=== PATIENT | female | born 1955 | race African-American/Black ===

== ENCOUNTER 2017-03-09 20:26 | Emergency (ER) | payer MEDICARE, BC ==
[~2017-03-09] VITALS: Ht 160 cm; Wt 92.1 kg
[~2017-03-09 20:26] MED LIST: ALBU2.5V5 IH; CETI10TA22 PO; CIPR500T6 PO; DIAZEPAM10 MG PO; ESTR5VIA IM; FAMO20TA5 PO; FLUT16SP2 NS; FURO-68 PO; HYDR-971 PO; HYDR1TAB26 PO; LANS30CA66 PO; LEXAPRO10 MG PO; METF500T4 PO; METH10TA2 PO; PRED10TA16 PO; PRED50TA PO; PRO AIR; ROSI4TAB3 PO; TRAM50TA PO; TRIA15OI TP
[2017-03-09 20:40] VITALS: BP 165/80
[2017-03-09 20:54] LABS: BASO % 1 % (0-3); EOS % 1 % (0-3); HEMATOCRIT 39.7 % (36.0-47.0); LYMPH # 2.1 x10^3/uL (1.0-4.8); LYMPH % 53 % (24-48); MEAN CORPUSCULAR HEMOGLOBIN 29 pg (25-35); MEAN CORPUSCULAR HGB CONC 33 g/dL (31-37); MEAN CORPUSCULAR VOLUME 89 fL (79-100); MONO % 10 % (0-9); NEUT % 36 % (31-73); PLATELET COUNT 212 x10^3/uL (140-400); RED BLOOD COUNT 4.47 x10^6/uL (3.50-5.40); RED CELL DISTRIBUTION WIDTH 14.2 % (11.5-14.5); WHITE BLOOD COUNT 3.9 x10^3/uL (4.0-11.0)
[2017-03-09 21:02] LABS: CALCIUM 8.6 mg/dL (8.5-10.1); CREATININE 0.8 mg/dL (0.6-1.0); GFR 87.7; POTASSIUM 3.4 mmol/L (3.5-5.1)
[2017-03-09 21:08] LABS: ALBUMIN 3.7 g/dL (3.4-5.0); TOTAL BILIRUBIN 0.4 mg/dL (0.2-1.0); TOTAL PROTEIN 7.3 g/dL (6.4-8.2)
[2017-03-09] MEDS: fentaNYL PF VIAL 100 MCG/2 ML VIAL IV PRN ×2 (21:23→22:00)
[2017-03-09 21:27] LABS: BILIRUBIN,URINE NEGATIVE (NEG); GLUCOSE,URINE NEGATIVE (NEG); NITRITE,URINE NEGATIVE (NEG); PROTEIN,URINE NEGATIVE (NEG-TRACE); UROBILINOGEN,URINE 0.2 mg/dL (0.2 mg/dL)
[2017-03-09 21:37] LABS: BACTERIA,URINE 0 /HPF (0-FEW); RBC,URINE TNTC /HPF (0-2); SQUAMOUS EPITHELIAL CELL,UR MOD /LPF; WBC,URINE 0 /HPF (0-4)
[2017-03-09] MEDS ORDERED: ONDANSETRON PF 4 MG/2 ML VIAL. IV ONE (21:45)
--- NOTE | 2017-03-09 21:48 | RAD ---
EXAM: CT ABDOMEN/PELVIS WITHOUT CONTRAST. HISTORY: Left lower quadrant pain and flank pain. TECHNIQUE: Computed tomography of the abdomen and pelvis was performed without intravenous contrast. COMPARISON: None. FINDINGS: Lung windows through the visualized portions of the bases reveal a calcified granuloma in the left lower lobe. Bone windows reveal no suspicious lesions. Instrumented anterior and posterior fusion changes are noted from L4 through S1 with laminectomies. There is a prominent hemangioma within the right pedicle and body of L3. The appendix is not inflamed. There is no obstruction. The uterus is surgically absent. A calculus at the left ureteropelvic junction measures 5 x 3 mm. There is only mild pelviectasis. Additional left renal calculi measure 3 mm or less. One on the right measures 3 mm. The liver, gallbladder, spleen, pancreas and adrenal glands are unremarkable without contrast. IMPRESSION: 1. 5 mm left ureteropelvic junction calculus. 2. Additional bilateral renal calculi measure 3 mm or less. *One or more of the following individualized dose reduction techniques were utilized for this examination: 1. Automated exposure control. 2. Adjustment of the mA and/or kV according to patient size. 3. Use of iterative reconstruction technique. Electronically signed by: No Perez MD (03/09/2017 9:45 PM) [facility]
[2017-03-09] MEDS ORDERED: HYDR-2758 PO (21:55)
[2017-03-09] MEDS ORDERED: ONDA4TAB10 SL (21:55)
--- NOTE | 2017-03-09 21:55 | PHYS DOC ---
Past Medical History Past Medical History: Asthma, Bronchitis, Depression, Diabetes-Type II, GERD, Kidney Stone Additional Past Medical Histor: cystitis, bulging disc, DJD, CHRONIC BACK PAIN, SLEEP APNEA Past Surgical History: Hysterectomy, Knee Replacement, Tonsillectomy, Tubal ligation, Other Additional Past Surgical Histo: LAP, back X 2 Alcohol Use: Occasionally Drug Use: None Adult General Chief Complaint Chief Complaint: flank pain HPI HPI 61-year-old female presenting to the emergency department with left flank pain. The pain is moderate to severe, associated with hematuria. it is radiating from the flank into the groin. She has history of kidney stones. She denies vomiting fevers or chills. Review of systems is negative for chest pain shortness of breath fevers chills confusion weakness or numbness. All other review of systems is negative unless otherwise noted in history of present illness. ED course: 61-year-old female presenting with left flank pain found to have nephrolithiasis 5 mm stone at the UPJ. IV fluids pain medication were administered along with nausea medication. Otherwise exam was unremarkable. Patient was subsequent discharged home to follow-up with urology in about 7 days. The patient was then discharged home in stable condition to follow up with their primary care physician over the next 2-3 days. They were to return if their symptoms worsened or if they were concerned for any reason. Face-to- face discharge instructions and return precautions were given. Patient's questions were answered to their satisfaction. Patient is comfortable plan. Review of Systems Review of Systems SEE ABOVE. Current Medications Current Medications Current Medications Medications (Trade) Dose Ordered Sig/Karina Start Time Stop Time Status Last Admin Dose Admin Fentanyl Citrate (Fentanyl 2ml Vial) 25 mcg 1X PRN PRN 03/09/17 21:15 03/10/17 21:14 03/09/17 21:23 25 MCG Ondansetron HCl (Zofran) 4 mg 1X ONCE 03/09/17 21:45 03/09/17 21:46 DC 03/09/17 21:23 4 MG Allergies Allergies Allergies Coded Allergies Type Severity Reaction Last Updated Verified Iodinated Contrast- Oral and IV Dye Allergy Intermediate Hives 06/06/14 Yes aspirin Allergy Intermediate Hives 06/06/14 Yes caffeine Allergy Intermediate Hives 06/06/14 Yes ibuprofen Allergy Intermediate Hives 08/29/13 Yes morphine Allergy Intermediate Hives 04/07/15 Yes oxycodone HCl Allergy Intermediate Hives 04/07/15 Yes propoxyphene napsylate Allergy Intermediate Hives 08/29/13 Yes codeine Adverse Reaction Intermediate N&V STOMACH PAINS 04/07/15 Yes Physical Exam Physical Exam SEE ABOVE Constitutional: Well developed, well nourished, no acute distress, non-toxic appearance. [] HENT: Normocephalic, atraumatic, bilateral external ears normal, oropharynx moist, no oral exudates, nose normal. [] Eyes: PERRLA, EOMI, conjunctiva normal, no discharge. [] Neck: Normal range of motion, no tenderness, supple, no stridor. [] Cardiovascular:Heart rate regular rhythm, no murmur [] Lungs & Thorax: Bilateral breath sounds clear to auscultation [] Abdomen: Bowel sounds normal, soft, no tenderness, no masses, no pulsatile masses. [] Skin: Warm, dry, no erythema, no rash. [] Back: No tenderness, mild left CVA tenderness Extremities: No tenderness, no cyanosis, no clubbing, ROM intact, no edema. [] Neurologic: Alert and oriented X 3, normal motor function, normal sensory function, no focal deficits noted. [] Psychologic: Affect normal, judgement normal, mood normal. [] Current Patient Data Vital Signs Vital Signs Date Time Temp Pulse Resp B/P (MAP) Pulse Ox O2 Delivery O2 Flow Rate FiO2 03/09/17 21:23 20 03/09/17 20:40 98.1 80 165/80 (108) 100 Room Air 98.1 Lab Values Laboratory Tests Test 03/09/17 20:44 White Blood Count 3.9 x10^3/uL (4.0-11.0) L Red Blood Count 4.47 x10^6/uL (3.50-5.40) Hemoglobin 13.0 g/dL (12.0-15.5) Hematocrit 39.7 % (36.0-47.0) Mean Corpuscular Volume 89 fL (79-100) Mean Corpuscular Hemoglobin 29 pg (25-35) Mean Corpuscular Hemoglobin Concent 33 g/dL (31-37) Red Cell Distribution Width 14.2 % (11.5-14.5) Platelet Count 212 x10^3/uL (140-400) Neutrophils (%) (Auto) 36 % (31-73) Lymphocytes (%) (Auto) 53 % (24-48) H Monocytes (%) (Auto) 10 % (0-9) H Eosinophils (%) (Auto) 1 % (0-3) Basophils (%) (Auto) 1 % (0-3) Neutrophils # (Auto) 1.4 x10^3uL (1.8-7.7) L Lymphocytes # (Auto) 2.1 x10^3/uL (1.0-4.8) Monocytes # (Auto) 0.4 x10^3/uL (0.0-1.1) Eosinophils # (Auto) 0.0 x10^3/uL (0.0-0.7) Basophils # (Auto) 0.0 x10^3/uL (0.0-0.2) Urine Collection Type Unknown Urine Color Yellow Urine Clarity Clear Urine pH 6.0 Urine Specific [place] 1.020 Urine Protein Negative mg/dL (NEG-TRACE) Urine Glucose (UA) Negative mg/dL (NEG) Urine Ketones (Stick) Negative mg/dL (NEG) Urine Blood Large (NEG) Urine Nitrite Negative (NEG) Urine Bilirubin Negative (NEG) Urine Urobilinogen Dipstick 0.2 mg/dL (0.2 mg/dL) Urine Leukocyte Esterase Trace (NEG) Urine RBC Tntc /HPF (0-2) Urine WBC 0 /HPF (0-4) Urine Squamous Epithelial Cells Mod /LPF Urine Bacteria 0 /HPF (0-FEW) Urine Hyaline Casts Few /HPF Urine Mucus Marked /LPF Sodium Level 143 mmol/L (136-145) Potassium Level 3.4 mmol/L (3.5-5.1) L Chloride Level 106 mmol/L (98-107) Carbon Dioxide Level 31 mmol/L (21-32) Anion Gap 6 (6-14) Blood Urea Nitrogen 16 mg/dL (7-20) Creatinine 0.8 mg/dL (0.6-1.0) Estimated GFR (Cockcroft-Gault) 87.7 BUN/Creatinine Ratio 20 (6-20) Glucose Level 87 mg/dL (70-99) Calcium Level 8.6 mg/dL (8.5-10.1) Total Bilirubin 0.4 mg/dL (0.2-1.0) Aspartate Amino Transferase (AST) 15 U/L (15-37) Alanine Aminotransferase (ALT) 17 U/L (14-59) Alkaline Phosphatase 56 U/L (46-116) Total Protein 7.3 g/dL (6.4-8.2) Albumin 3.7 g/dL (3.4-5.0) Albumin/Globulin Ratio 1.0 (1.0-1.7) Lipase 69 U/L (73-393) L Laboratory Tests 03/09/17 20:44 Laboratory Tests 03/09/17 20:44 EKG EKG [] Radiology/Procedures Radiology/Procedures [] Course & Med Decision Making Course & Med Decision Making Pertinent Labs and Imaging studies reviewed. (See chart for details) [] Dragon Disclaimer Dragon Disclaimer This electronic medical record was generated, in whole or in part, using a voice recognition dictation system. Departure Departure Impression: Primary Impression: Nephrolithiasis Disposition: 01 HOME, SELF-CARE Condition: STABLE Referrals: ALEXIA DEL CASTILLO MD (PCP) CHRISSY HARGROVE MD Patient Instructions: Kidney Stones Additional Instructions: Thank you for allowing us to participate in your care today. Followup with your primary care physician in 3 days if your symptoms do not improve. Follow-up with a urologist within 7 days. Call your Primary Doctor tomorrow and inform them of your visit today. If you do not have a primary care provider you can ask for a list of our primary care providers. Return to the emergency department you have any new or concerning findings. This should be evaluated by the primary care physician and any necessary consulting services for continued management within a few days after discharge. Return to emergency room if you have any new or concerning symptoms including but not limited to fever, chills, nausea, vomiting, intractable pain, any new rashes, chest pain, shortness of air, uncontrolled bleeding, difficulty breathing, and/or vision loss. You may have been prescribed medication that can change in your level of thinking and ability to operate machinery. These medications include hydrocodone and Ativan. Also, Benadryl has been known to do this as well. Be sure to check with your pharmacist and ask if the medications you've prescribed can affect your level of consciousness. I recommend not operating heavy machinery or driving while on medication such as these. Scripts Ondansetron (ZOFRAN ODT) 4 Mg Tab.rapdis 1 TAB SL PRN Q8HRS Y for NAUSEA, #6 TAB Prov: MELI VÁZQUEZ MD 03/09/17 Hydrocodone Bit/Acetaminophen (HYDROCODONE-APAP 5-325 ) 1 Each Tablet 1 TAB PO PRN Q6HRS Y for PAIN, #15 TAB 0 Refills Be careful as this medication may cause you to be drowsy or tired. Do not drive on this medication. Prov: MELI VÁZQUEZ MD 03/09/17 MELI VÁZQUEZ MD Mar 09, 2017 21:55
== END 2017-03-09 22:22 | disposition home or self-care (01) ==
LOC: ER 20:26
DX: N20.0 Calculus of kidney (principal); E11.9 Type 2 diabetes mellitus without complications; J45.909 Unspecified asthma, uncomplicated; K21.9 Gastro-esophageal reflux disease without esophagitis; G89.29 Other chronic pain; Z90.710 Acquired absence of both cervix and uterus; Z91.041 Radiographic dye allergy status; Z88.6 Allergy status to analgesic agent; Z88.5 Allergy status to narcotic agent; Z88.8 Allergy status to other drugs, medicaments and biological substances
CPT/HCPCS: 36415; 74176; 80053; 81001; 83690; 85027; 87086; 96374; 96375; 96376; 99285; J2405; J3010

== ENCOUNTER 2017-06-22 16:54 | Emergency (ER) | payer MEDICARE, BC ==
[~2017-06-22] VITALS: Ht 160 cm; Wt 92.5 kg
[~2017-06-22 16:54] MED LIST changes: +HYDR-2758 PO; +ONDA4TAB10 SL
[2017-06-22 17:13] VITALS: BP 168/86
--- NOTE | 2017-06-22 17:37 | PHYS DOC ---
Past Medical History Past Medical History: Asthma, Bronchitis, Depression, Diabetes-Type II, GERD, Kidney Stone Additional Past Medical Histor: cystitis, bulging disc, DJD, CHRONIC BACK PAIN, SLEEP APNEA Past Surgical History: Hysterectomy, Knee Replacement, Tonsillectomy, Tubal ligation, Other Additional Past Surgical Histo: LAP, back X 2 Alcohol Use: Occasionally Drug Use: None Adult General Chief Complaint Chief Complaint: UPPER EXTREMITY PAIN [facility] HPI Patient is a 61 year old female presents to the emergency department stating she's been having a right elbow pain and discomfort from approximately 1 month now. Patient states that she is seen by her primary care physician in which she was provided with hydrocodone for pain and discomfort. She describes the pain as being sharp and stabbing in nature and increased with movement. She states that the pain originates at the elbow and radiates down into the hand and up into the shoulder area. Patient denies any trauma or injuries. She cannot recall what she was doing prior to the incident occurring. Patient states that her primary care physician and has asked for her to follow up with her neurologist as they believe that this may be neuropathy. Patient states that she does have neuropathy in her feet and this is nothing near the same type of pain. Patient does state that she is right-hand dominant. She denies having any x-rays or any further examinations of the elbow. Patient then states she feels as though the elbow catches at time with movement. Review of Systems Review of Systems Constitutional: Denies fever or chills [] Eyes: Denies change in visual acuity, redness, or eye pain [] HENT: Denies nasal congestion or sore throat [] Respiratory: Denies cough or shortness of breath [] Cardiovascular: No additional information not addressed in HPI [] GI: Denies abdominal pain, nausea, vomiting, bloody stools or diarrhea [] : Denies dysuria or hematuria [] Musculoskeletal: Denies back pain. Right elbow pain and discomfort Integument: Denies rash or skin lesions [] Neurologic: Denies headache, focal weakness or sensory changes [] Endocrine: Denies polyuria or polydipsia [] All other systems were reviewed and found to be within normal limits, except as documented in this note. Allergies Allergies Allergies Coded Allergies Type Severity Reaction Last Updated Verified Iodinated Contrast- Oral and IV Dye Allergy Intermediate Hives 06/06/14 Yes aspirin Allergy Intermediate Hives 06/06/14 Yes caffeine Allergy Intermediate Hives 06/06/14 Yes ibuprofen Allergy Intermediate Hives 08/29/13 Yes morphine Allergy Intermediate Hives 04/07/15 Yes oxycodone HCl Allergy Intermediate Hives 04/07/15 Yes propoxyphene napsylate Allergy Intermediate Hives 08/29/13 Yes codeine Adverse Reaction Intermediate N&V STOMACH PAINS 04/07/15 Yes Physical Exam Physical Exam Constitutional: Well developed, well nourished, no acute distress, non-toxic appearance. [] HENT: Normocephalic, atraumatic, bilateral external ears normal, oropharynx moist, no oral exudates, nose normal. [] Eyes: PERRLA, EOMI, conjunctiva normal, no discharge. [] Neck: Normal range of motion, no tenderness, supple, no stridor. [] Cardiovascular:Heart rate regular rhythm, no murmur [] Lungs & Thorax: Bilateral breath sounds clear to auscultation [] Skin: Warm, dry, no erythema, no rash. [] Back: No tenderness Extremities: Right elbow tenderness, no bruising, no swelling or discoloration noted at the elbow area. No cyanosis, no clubbing, ROM intact, no edema. Equal dean of instruction noted bilaterally, peripheral pulses 2+ cap refill brisk < 2 seconds. Neurologic: Alert and oriented X 3, normal motor function, normal sensory function, no focal deficits noted. [] Psychologic: Affect normal, judgement normal, mood normal. [] Current Patient Data Vital Signs Vital Signs Date Time Temp Pulse Resp B/P (MAP) Pulse Ox O2 Delivery O2 Flow Rate FiO2 06/22/17 17:13 97.7 72 18 100 Room Air 97.7 EKG EKG [] Radiology/Procedures Radiology/Procedures [] Course & Med Decision Making Course & Med Decision Making Pertinent Labs and Imaging studies reviewed. (See chart for details) Patient requested pain medication here in the emergency department. X-rays were still pending at this time. X-rays are negative for any bony abnormalities per Dr. Moreno. When into provided patient with x-ray results. Patient was offered Tylenol here in the emergency department. Patient states she has arty self medicated her with her home medications. Patient will be discharged home with recommendations to follow-up with orthopedic. She'll be provided with Dr. Owens name and number to follow-up with. Recommended elevation as much as possible. Recommend she continue to use the elbow to prevent it from freezing. Signs and symptoms return back to emergency department provided. All questions and concerns answered at patient's bedside. She'll be discharged home in stable condition. All questions and concerns answered at the patient's bedside. [] Dragon Disclaimer Dragon Disclaimer This electronic medical record was generated, in whole or in part, using a voice recognition dictation system. Departure Departure Impression: Primary Impression: Right elbow pain Disposition: HOME, SELF-CARE Condition: STABLE Referrals: ALEXIA DEL CASTILLO MD (PCP) Patient Instructions: Elbow Injury-Brief Additional Instructions: Activity as tolerated. Take your pain medications as prescribed. Ice packs on 20 minutes off treatment several times a day. Elevation as much as possible. Follow-up with orthopedic within the next week. Follow-up your primary care physician for further pain management. Return back to emergency department for signs and symptoms become worse. KAVITA JC APRN Jun 22, 2017 17:37
--- NOTE | 2017-06-23 07:56 | RAD ---
EXAM: Right elbow, 3 views. HISTORY: Pain. COMPARISON: None. FINDINGS: Frontal, lateral and oblique views of the right elbow were obtained. There is no fracture, dislocation or subluxation. There is degenerative spurring along the anterior trochlea. Evaluation for effusion is limited due to overlying soft tissue and coating artifact. There is suggestion of prominent anterior fat pad. IMPRESSION: 1. Mild osteoarthritis involving the right elbow. 2. Suboptimal evaluation for elbow effusion. There is suggestion of an anterior fat pad is indicating an effusion. Correlate with physical exam findings.
== END 2017-06-22 18:16 | disposition home or self-care (01) ==
LOC: ER 16:54
DX: M25.521 Pain in right elbow (principal); J45.909 Unspecified asthma, uncomplicated; F32.9 Major depressive disorder, single episode, unspecified; E11.9 Type 2 diabetes mellitus without complications; K21.9 Gastro-esophageal reflux disease without esophagitis; G89.29 Other chronic pain; G47.30 Sleep apnea, unspecified; Z87.442 Personal history of urinary calculi; Z96.659 Presence of unspecified artificial knee joint; Z90.710 Acquired absence of both cervix and uterus; Z91.041 Radiographic dye allergy status; Z88.6 Allergy status to analgesic agent; Z88.8 Allergy status to other drugs, medicaments and biological substances; Z88.5 Allergy status to narcotic agent
CPT/HCPCS: 73080; 99284

== ENCOUNTER 2017-10-18 06:32 | Observation (INO) | payer BC, MEDICARE ==
[2017-10-18] MEDS ORDERED: MORPHINE SULFATE 2 MG/ML DISP.SYRIN. IV (07:00)
[2017-10-18] MEDS ORDERED: ONDANSETRON PF 4 MG/2 ML VIAL. IV (07:00)
[2017-10-18] MEDS ORDERED: LIDOCAINE 1% PF 2 ML VIAL. ID (07:00)
[2017-10-18] MEDS: IV RINGERS,LACTATED 1000ML 1,000 ML IV (07:17)
[2017-10-18 07:46] LABS: ADD MAN DIFF? NO
[2017-10-18 07:51] LABS: BASO % 1 % (0-3); EOS % 1 % (0-3); HEMOGLOBIN 13.3 g/dL (12.0-15.5); LYMPH # 1.7 x10^3/uL (1.0-4.8); LYMPH % 50 % (24-48); MEAN CORPUSCULAR HEMOGLOBIN 28 pg (25-35); MEAN CORPUSCULAR HGB CONC 33 g/dL (31-37); MEAN CORPUSCULAR VOLUME 88 fL (79-100); MONO # 0.3 x10^3/uL (0.0-1.1); MONO % 10 % (0-9); NEUT # 1.3 x10^3uL (1.8-7.7); NEUT % 39 % (31-73); PLATELET COUNT 201 x10^3/uL (140-400); RED BLOOD COUNT 4.68 x10^6/uL (3.50-5.40); RED CELL DISTRIBUTION WIDTH 14.1 % (11.5-14.5); WHITE BLOOD COUNT 3.4 x10^3/uL (4.0-11.0)
[2017-10-18] MEDS ORDERED: SURGICEL HEMOSTAT 4X8 EACH. (07:57)
[2017-10-18] MEDS ORDERED: fentaNYL PF VIAL 100 MCG/2 ML VIAL ×3 (08:05→12:31)
[2017-10-18] MEDS ORDERED: MIDAZOLAM HCL/PF 2 MG/2 ML VIAL. (08:19)
[2017-10-18] MEDS ORDERED: GLYCOPYRROLATE 1 MG/5 ML VIAL. (08:49)
[2017-10-18] MEDS ORDERED: NEOSTIGMINE 10 MG/10 ML VIAL. (08:54)
[2017-10-18] MEDS ORDERED: DEXAMETHASONE SOD PHOS 20 MG/5 ML VIAL. (09:07)
[2017-10-18] MEDS ORDERED: ONDANSETRON PF 4 MG/2 ML VIAL. (09:07)
[2017-10-18] MEDS ORDERED: PROPOFOL 20 ML IV (09:07)
[2017-10-18] MEDS: BUPIVAC MPF-EPI 0.5%-1:200000 30 ML VIAL. INJ (09:26)
[2017-10-18] MEDS ORDERED: SEVOFLURANE > 120 MINUTES. IH (10:39)
[2017-10-18] MEDS ORDERED: DEXTROSE 50% 25 GM / 50ML DISP.SYRIN. IV (10:45)
[2017-10-18] MEDS ORDERED: diphenhydrAMINE HCL 25 MG CAPSULE PO (10:45)
[2017-10-18] MEDS ORDERED: PROCHLORPERAZINE 10 MG/2 ML VIAL. IV (10:45)
[2017-10-18] MEDS ORDERED: 0.9 % SODIUM CHLORIDE 10 ML DISP.SYRIN. IV (10:45)
[2017-10-18] MEDS ORDERED: KETAMINE HCL 500 MG/10 ML VIAL. (11:00)
[2017-10-18 11:15] LABS: POC GLUCOSE 106 mg/dL (70-99)
[2017-10-18] MEDS ORDERED: ceFAZolin 2GM PREMIX 2 GM/50 ML BAG IV (12:00)
[2017-10-18] MEDS: fentaNYL PF VIAL 100 MCG/2 ML VIAL IV ×4 (12:34→19:59)
[2017-10-18] MEDS ORDERED: PROCHLORPERAZINE 10 MG/2 ML VIAL. (13:26)
[2017-10-18] MEDS: PROCHLORPERAZINE 10 MG/2 ML VIAL. IV (13:28)
[2017-10-18] MEDS: GABAPENTIN 300 MG CAPSULE. PO ×2 (14:00→22:00)
[2017-10-18] MEDS: PHENOL ORAL SPRAY 177ML BOTTLE. PO (18:39)
[2017-10-18] MEDS: ACETAMINOPHEN 650 MG/20.3 ML SOLUTION. PO (22:59)
[2017-10-19] MEDS: GABAPENTIN 300 MG CAPSULE. PO ×3 (06:00→15:17)
[2017-10-19 06:35] LABS: ADD MAN DIFF? NO
[2017-10-19 06:58] LABS: BASO % 0 % (0-3); EOS % 0 % (0-3); LYMPH # 1.9 x10^3/uL (1.0-4.8); LYMPH % 20 % (24-48); MEAN CORPUSCULAR HEMOGLOBIN 29 pg (25-35); MEAN CORPUSCULAR HGB CONC 33 g/dL (31-37); MEAN CORPUSCULAR VOLUME 88 fL (79-100); MONO # 0.8 x10^3/uL (0.0-1.1); MONO % 8 % (0-9); NEUT # 6.8 x10^3uL (1.8-7.7); NEUT % 72 % (31-73); PLATELET COUNT 189 x10^3/uL (140-400); RED BLOOD COUNT 4.21 x10^6/uL (3.50-5.40); RED CELL DISTRIBUTION WIDTH 14.4 % (11.5-14.5); WHITE BLOOD COUNT 9.5 x10^3/uL (4.0-11.0)
[2017-10-19] MEDS: SIMETHICONE 80 MG TAB.CHEW PO ×2 (07:37→16:23)
[2017-10-19] MEDS: metFORMIN 500 MG TABLET PO (07:37)
[2017-10-19] MEDS: HYDROcodone/APAP 5/325MG 1 TAB TABLET PO ×4 (07:38→22:29)
[2017-10-19 08:29] LABS: POC GLUCOSE 94 mg/dL (70-99)
[2017-10-19] MEDS: IV RINGERS,LACTATED 1000ML 1,000 ML IV ×3 (08:45→23:28)
[2017-10-19] MEDS: ONDANSETRON PF 4 MG/2 ML VIAL. IV (08:48)
[2017-10-19 11:38] LABS: POC GLUCOSE 102 mg/dL (70-99)
[2017-10-19] MEDS: ACETAMINOPHEN 650 MG/20.3 ML SOLUTION. PO (13:27)
[2017-10-19] MEDS: CALCIUM CARBONATE 500 MG TAB.CHEW PO (16:23)
[2017-10-19] MEDS: fentaNYL PF VIAL 100 MCG/2 ML VIAL IV (17:21)
[2017-10-19 17:46] LABS: ADD MAN DIFF? NO
[2017-10-19 17:52] LABS: BASO % 1 % (0-3); EOS % 1 % (0-3); HEMATOCRIT 35.2 % (36.0-47.0); HEMOGLOBIN 11.7 g/dL (12.0-15.5); LYMPH # 1.7 x10^3/uL (1.0-4.8); LYMPH % 23 % (24-48); MEAN CORPUSCULAR HEMOGLOBIN 29 pg (25-35); MEAN CORPUSCULAR HGB CONC 33 g/dL (31-37); MEAN CORPUSCULAR VOLUME 88 fL (79-100); MONO # 0.4 x10^3/uL (0.0-1.1); MONO % 6 % (0-9); NEUT % 69 % (31-73); PLATELET COUNT 177 x10^3/uL (140-400); RED BLOOD COUNT 4.01 x10^6/uL (3.50-5.40); RED CELL DISTRIBUTION WIDTH 14.1 % (11.5-14.5); WHITE BLOOD COUNT 7.1 x10^3/uL (4.0-11.0)
[2017-10-19] MEDS: diphenhydrAMINE 50 MG/ML VIAL IV (18:48)
[2017-10-19] MEDS ORDERED: DICYCLOMINE HCL 10 MG CAPSULE PO (19:30)
[2017-10-19] MEDS: DOCUSATE SODIUM 100 MG CAPSULE. PO (20:29)
[2017-10-19] MEDS: KETOROLAC 30 MG/ML INJ. IV (20:30)
[2017-10-19] MEDS: DICYCLOMINE HCL 10 MG CAPSULE PO (20:36)
[2017-10-19 21:09] LABS: POC GLUCOSE 72 mg/dL (70-99)
[2017-10-19] MEDS: ZOLPIDEM 5 MG TABLET. PO (22:45)
[2017-10-20] MEDS: HYDROcodone/APAP 5/325MG 1 TAB TABLET PO ×5 (02:19→19:53)
[2017-10-20] MEDS: KETOROLAC 30 MG/ML INJ. IV ×3 (02:23→17:53)
[2017-10-20] MEDS: SIMETHICONE 80 MG TAB.CHEW PO ×2 (06:18→10:20)
[2017-10-20] MEDS: DICYCLOMINE HCL 10 MG CAPSULE PO ×2 (06:18→13:06)
[2017-10-20 08:08] LABS: POC GLUCOSE 87 mg/dL (70-99)
[2017-10-20] MEDS: DOCUSATE SODIUM 100 MG CAPSULE. PO ×2 (09:20→19:53)
[2017-10-20] MEDS: BISACODYL 10 MG SUPP.RECT. PR (10:25)
[2017-10-20 13:13] LABS: POC GLUCOSE 111 mg/dL (70-99)
[2017-10-20] MEDS: GABAPENTIN 300 MG CAPSULE. PO ×2 (14:00→20:37)
[2017-10-20] MEDS: ZOLPIDEM 5 MG TABLET. PO (21:48)
[2017-10-21] MEDS: HYDROcodone/APAP 5/325MG 1 TAB TABLET PO ×4 (01:46→14:57)
[2017-10-21] MEDS ORDERED: AMMONIA AROMATIC 15% INHALANT AMPUL. ×2 (04:46→05:00)
[2017-10-21] MEDS: GABAPENTIN 300 MG CAPSULE. PO ×2 (07:09→14:57)
[2017-10-21] MEDS: DOCUSATE SODIUM 100 MG CAPSULE. PO (07:09)
[2017-10-21] MEDS: metFORMIN 500 MG TABLET PO (07:09)
[2017-10-21] MEDS: DICYCLOMINE HCL 10 MG CAPSULE PO (08:46)
== END 2017-10-21 17:05 | disposition home or self-care (01) ==
LOC: SURG 06:32 → 3 NORTH 10:43
DX: K66.0 Peritoneal adhesions (postprocedural) (postinfection) (principal); R10.2 Pelvic and perineal pain; N73.6 Female pelvic peritoneal adhesions (postinfective); G89.29 Other chronic pain
CPT/HCPCS: 36415; 82962; 85025; 86850; 86900; 86901; 96374; 96375; 96376; A4215; C1782; G0378; G0379; J0690; J0780; J1100; J1200; J1885; J2250; J2405; J2704; J2710; J3010; J3490; J7030; J7120

== ENCOUNTER → 2018-10-18 | Outpatient (CLI) | payer MEDICARE, BC ==
[2017-10-21 14:10] VITALS: BP 132/78
[~2018-10-18] MED LIST changes: +CEPH500C PO; +DICY10AM PO; +DOCU-109 PO; +ESTR1TAB15 PO; +GABA-689 PO; -HYDR-2758 PO; +HYDR-2761 PO; +HYDR-3164 PO; -HYDR-971 PO; +METF500T16 PO; -METF500T4 PO; +OMEP40CA5 PO; +ZOLP10TA PO
--- NOTE | 2018-10-18 15:06 | RAD ---
Three-phase bone scan, 10/18/2018: HISTORY: Left knee pain, fall, previous left knee replacement in 2008 Imaging of both knees was performed following IV injection of 26 mCi of technetium 99m MDP. No previous bone scan is available at this time for comparison purposes. The dynamic flow study demonstrates symmetric perfusion at the knees. The blood pool phase demonstrates a photon deficient area at the left knee due to the patient's known knee prosthesis. The delayed images demonstrate moderately increased activity along the margins of both the tibial and femoral components of the left knee prosthesis, most prominent laterally. There is also increased activity at the left patella. There is only minimally increased activity at the right knee compatible with patient's known arthritis. IMPRESSION: Moderately periprosthetic and patellar activity at the left knee raising the possibility of prosthesis loosening or infection. Electronically signed by: Meliton Maher MD (10/18/2018 3:03 PM) [facility]
== END | disposition home or self-care (01) ==
LOC: NM 08:12
PROVIDERS: ATTEND Orthopaedic Surgery
DX: Z47.1 Aftercare following joint replacement surgery (principal); Z96.652 Presence of left artificial knee joint
CPT/HCPCS: 78315; 96374; A9503

== ENCOUNTER 2019-01-19 09:46 | Emergency (ER) | payer MEDICARE, BC ==
[~2019-01-19] VITALS: Ht 160 cm; Wt 100.7 kg
[~2019-01-19 09:46] MED LIST changes: -CEPH500C PO
[2019-01-19] MEDS ORDERED: IV NORMAL SALINE 1000ML BAG 1,000 ML IV ONE (10:15)
[2019-01-19] MEDS ORDERED: ONDANSETRON PF 4 MG/2 ML VIAL. IV ONE (10:15)
[2019-01-19 10:36] LABS: BILIRUBIN,URINE NEGATIVE (NEG); CLARITY,URINE CLEAR; COLOR,URINE YELLOW; NITRITE,URINE POSITIVE (NEG); PH,URINE 7.5; PROTEIN,URINE 30 mg/dL (NEG-TRACE)
[2019-01-19] MEDS ORDERED: fentaNYL PF VIAL 100 MCG/2 ML VIAL IV ONE (10:45)
[2019-01-19 10:46] LABS: BASO % 1 % (0-3); EOS # 0.1 x10^3/uL (0.0-0.7); EOS % 2 % (0-3); HEMATOCRIT 35.8 % (36.0-47.0); HEMOGLOBIN 11.9 g/dL (12.0-15.5); LYMPH # 1.3 x10^3/uL (1.0-4.8); LYMPH % 38 % (24-48); MEAN CORPUSCULAR HEMOGLOBIN 29 pg (25-35); MEAN CORPUSCULAR HGB CONC 33 g/dL (31-37); MEAN CORPUSCULAR VOLUME 87 fL (79-100); MONO # 0.4 x10^3/uL (0.0-1.1); MONO % 11 % (0-9); NEUT # 1.6 x10^3uL (1.8-7.7); NEUT % 48 % (31-73); PLATELET COUNT 343 x10^3/uL (140-400); RED BLOOD COUNT 4.14 x10^6/uL (3.50-5.40); RED CELL DISTRIBUTION WIDTH 13.5 % (11.5-14.5); WHITE BLOOD COUNT 3.3 x10^3/uL (4.0-11.0)
[2019-01-19 11:14] LABS: SQUAMOUS EPITHELIAL CELL,UR MANY /LPF
[2019-01-19 11:15] LABS: BACTERIA,URINE MODERATE /HPF (0-FEW); RBC,URINE 0 /HPF (0-2)
[2019-01-19 11:17] LABS: CALCIUM 9.5 mg/dL (8.5-10.1); CREATININE 0.6 mg/dL (0.6-1.0); GFR 121.4; POTASSIUM 3.8 mmol/L (3.5-5.1)
[2019-01-19 11:31] LABS: ALBUMIN 3.6 g/dL (3.4-5.0); ALBUMIN/GLOBULIN RATIO 0.9 (1.0-1.7); TOTAL BILIRUBIN 0.3 mg/dL (0.2-1.0); TOTAL PROTEIN 7.4 g/dL (6.4-8.2)
--- NOTE | 2019-01-19 11:47 | RAD ---
CT abdomen and pelvis without contrast TECHNIQUE: Helical multiplanar reconstructed noncontrast CT imaging of the abdomen and pelvis was acquired. PQRS statement: CT scans at this facility use dose reduction including either automated exposure control, iterative reconstructions, and /or weight based radiation dosing via mA and kV modification when appropriate to reduce radiation dose to as low as reasonably achievable. HISTORY: Left lower quadrant abdominal pain, diverticulitis. COMPARISON: CT abdomen and pelvis June 04, 2014. Abdomen findings: Postoperative changes of L4 and L5 laminectomies and L4-5 and L5-S1 discectomies and fusion with interbody cages and pedicle screws and rods. There is a stable lytic lesion of the right L3 vertebral body and pedicle back to 2013 favoring a benign lesion. Small calcified granuloma left lower lobe. Fatty atrophy of the pancreas. Liver, spleen and adrenals are unremarkable. Nephrolithiasis. No ureteral calculi or hydronephrosis. Ovarian vein phleboliths separate from the ureters are noted. There may be faint dependent layering gallstones or dense gallbladder sludge. Sigmoid diverticulosis.Appendix not visualized could be surgically absent or vascular by surrounding bowel loops. No obstruction or inflammation of the GI tract. Aortic calcified plaque. No abdominal fluid. Pelvis findings: There is a mild bladder wall edema anteriorly. Hysterectomy. Ovaries absent. Numerous pelvic phleboliths. Rectum and bones are unremarkable. IMPRESSION: 1. Mild groundglass density surrounding the bladder may be edema from cystitis. 2. Nephrolithiasis. No obstructing urinary calculi or hydronephrosis evident. 3. Mild sigmoid diverticulosis without inflammatory change. Electronically signed by: David Gaspar MD (01/19/2019 11:44 AM) [facility]
[2019-01-19] MEDS ORDERED: CEPH500C PO (12:21)
[2019-01-19] MEDS ORDERED: cefTRIAXone IV Push 1 GM VIAL. IVP ONE (12:30)
[2019-01-19 12:32] VITALS: BP 157/80
--- NOTE | 2019-01-19 13:01 | PHYS DOC ---
Past Medical History Past Medical History: Asthma, Bronchitis, Depression, Diabetes-Type II, GERD, Kidney Stone, Other Additional Past Medical Histor: cystitis,bulging disc,DJD,CHRONIC BACK PAIN,SLEEP APNEA Past Surgical History: Hysterectomy, Knee Replacement, Tonsillectomy, Tubal ligation, Other Additional Past Surgical Histo: LAP,back X 2 Alcohol Use: Occasionally Drug Use: None Adult General Chief Complaint Chief Complaint: ABDOMINAL PAIN HPI HPI Patient is a 63 year old female presenting with abdominal pain lower abdomen has some pain with urination some dull and sharp pain also is having constipation frequent small bowel movements she is 3 weeks status post a knee replacement she is taking pain medication she is taking stool softener no fever that she knows of positive nausea she felt lightheaded this morning did not pass out no chest pain symptoms are moderate worsening with time Review of Systems Review of Systems Review of systems is otherwise negative except as noted in the history of present illness negative for chest pain negative for diarrhea negative for melena Current Medications Current Medications Current Medications Medications (Trade) Dose Ordered Sig/Karina Start Time Stop Time Status Last Admin Dose Admin Ceftriaxone Sodium (Rocephin) 1 gm 1X ONCE 01/19/19 12:30 01/19/19 12:31 DC 01/19/19 12:31 1 GM Fentanyl Citrate (Fentanyl 2ml Vial) 50 mcg 1X ONCE 01/19/19 10:45 01/19/19 10:46 DC 01/19/19 10:56 50 MCG Ondansetron HCl (Zofran) 4 mg 1X ONCE 01/19/19 10:15 01/19/19 10:16 DC 01/19/19 10:48 4 MG Sodium Chloride 1,000 ml @ 1,000 mls/hr 1X ONCE 01/19/19 10:15 01/19/19 11:14 DC 01/19/19 10:48 1,000 MLS/HR Allergies Allergies Allergies Coded Allergies Type Severity Reaction Last Updated Verified Iodinated Contrast- Oral and IV Dye Allergy Intermediate Hives 10/16/17 Yes aspirin Allergy Intermediate Hives 10/16/17 Yes caffeine Allergy Intermediate Hives 10/16/17 Yes morphine Allergy Intermediate NAUSEA 10/16/17 Yes oxycodone HCl Allergy Intermediate NAUSEA 10/16/17 Yes propoxyphene napsylate Allergy Intermediate NAUSEA 10/16/17 Yes ibuprofen Allergy Mild NAUSEA 10/16/17 Yes codeine Adverse Reaction Intermediate N&V STOMACH PAINS 10/16/17 Yes Physical Exam Physical Exam Constitutional: Well developed, well nourished, no acute distress, non-toxic appearance. [] HENT: Normocephalic, atraumatic, bilateral external ears normal, oropharynx moist, no oral exudates, nose normal. [] Eyes: PERRLA, EOMI, conjunctiva normal, no discharge. [] Neck: Normal range of motion, no tenderness, supple, no stridor. [] Cardiovascular:Heart rate regular rhythm, no murmur [] Lungs & Thorax: Bilateral breath sounds clear to auscultation [] Abdomen: Bowel sounds normal, soft, mild suprapubic and llq tenderness, no masses, no pulsatile masses. [] Skin: Warm, dry, no erythema, no rash. [] Back: No tenderness, no CVA tenderness. [] Extremities: Appropriate healing of a left total knee Neurologic: Alert and oriented X 3, normal motor function, normal sensory function, no focal deficits noted. [] Psychologic: Affect normal, judgement normal, mood normal. [] Current Patient Data Vital Signs Vital Signs Date Time Temp Pulse Resp B/P (MAP) Pulse Ox O2 Delivery O2 Flow Rate FiO2 01/19/19 12:32 80 17 157/80 (105) 96 Room Air 01/19/19 09:48 98.0 98.0 Lab Values Laboratory Tests Test 01/19/19 10:25 01/19/19 10:35 Urine Collection Type Unknown Urine Color Yellow Urine Clarity Clear Urine pH 7.5 Urine Specific [place] 1.020 Urine Protein 30 mg/dL (NEG-TRACE) Urine Glucose (UA) Negative mg/dL (NEG) Urine Ketones (Stick) Trace mg/dL (NEG) Urine Blood Negative (NEG) Urine Nitrite Positive (NEG) Urine Bilirubin Negative (NEG) Urine Urobilinogen Dipstick 1.0 mg/dL (0.2 mg/dL) Urine Leukocyte Esterase Small (NEG) Urine RBC 0 /HPF (0-2) Urine WBC 5-10 /HPF (0-4) Urine Squamous Epithelial Cells Many /LPF Urine Bacteria Moderate /HPF (0-FEW) Urine Mucus Mod /LPF White Blood Count 3.3 x10^3/uL (4.0-11.0) L Red Blood Count 4.14 x10^6/uL (3.50-5.40) Hemoglobin 11.9 g/dL (12.0-15.5) L Hematocrit 35.8 % (36.0-47.0) L Mean Corpuscular Volume 87 fL (79-100) Mean Corpuscular Hemoglobin 29 pg (25-35) Mean Corpuscular Hemoglobin Concent 33 g/dL (31-37) Red Cell Distribution Width 13.5 % (11.5-14.5) Platelet Count 343 x10^3/uL (140-400) Neutrophils (%) (Auto) 48 % (31-73) Lymphocytes (%) (Auto) 38 % (24-48) Monocytes (%) (Auto) 11 % (0-9) H Eosinophils (%) (Auto) 2 % (0-3) Basophils (%) (Auto) 1 % (0-3) Neutrophils # (Auto) 1.6 x10^3uL (1.8-7.7) L Lymphocytes # (Auto) 1.3 x10^3/uL (1.0-4.8) Monocytes # (Auto) 0.4 x10^3/uL (0.0-1.1) Eosinophils # (Auto) 0.1 x10^3/uL (0.0-0.7) Basophils # (Auto) 0.0 x10^3/uL (0.0-0.2) Sodium Level 141 mmol/L (136-145) Potassium Level 3.8 mmol/L (3.5-5.1) Chloride Level 103 mmol/L (98-107) Carbon Dioxide Level 29 mmol/L (21-32) Anion Gap 9 (6-14) Blood Urea Nitrogen 10 mg/dL (7-20) Creatinine 0.6 mg/dL (0.6-1.0) Estimated GFR (Cockcroft-Gault) 121.4 BUN/Creatinine Ratio 17 (6-20) Glucose Level 104 mg/dL (70-99) H Calcium Level 9.5 mg/dL (8.5-10.1) Total Bilirubin 0.3 mg/dL (0.2-1.0) Aspartate Amino Transferase (AST) 24 U/L (15-37) Alanine Aminotransferase (ALT) 22 U/L (14-59) Alkaline Phosphatase 80 U/L (46-116) Troponin I Quantitative < 0.017 ng/mL (0.000-0.055) Total Protein 7.4 g/dL (6.4-8.2) Albumin 3.6 g/dL (3.4-5.0) Albumin/Globulin Ratio 0.9 (1.0-1.7) L Lipase 56 U/L (73-393) L Laboratory Tests 01/19/19 10:35 Laboratory Tests 01/19/19 10:35 EKG EKG EKG shows a normal sinus rhythm rate of 87 6 there is Q waves high lateral but there is no acute ischemia noted interpreted by me the time of encounter[] Radiology/Procedures Radiology/Procedures [] Impressions: IMPRESSION: 1. Mild groundglass density surrounding the bladder may be edema from cystitis. 2. Nephrolithiasis. No obstructing urinary calculi or hydronephrosis evident. 3. Mild sigmoid diverticulosis without inflammatory change. Electronically signed by: David Gaspar MD (01/19/2019 11:44 AM) [facility] Course & Med Decision Making Course & Med Decision Making Pertinent Labs and Imaging studies reviewed. (See chart for details) []63-year-old female who is about 3 weeks status post a total knee presenting with lower abdominal discomfort and some dysuria CT scan urinalysis lab workup ER course overall suggests a UTI patient was treated for this. Rectal exam performed by me showed no rectal impaction no signs of diverticulitis on noncontrast CT scan she felt somewhat better in the emergency room after pain meds ago she did ask for a couple of doses overall. Prescription for Keflex also dose of ceftriaxone was given Dragon Disclaimer Dragon Disclaimer This electronic medical record was generated, in whole or in part, using a voice recognition dictation system. Departure Departure Impression: Primary Impression: Urinary tract infection Disposition: HOME, SELF-CARE Condition: STABLE Patient Instructions: Urinary Tract Infection Scripts Cephalexin (CEPHALEXIN) 500 Mg Capsule 1 CAP PO QID, #40 CAP Prov: DRAKE UMANZOR MD 01/19/19 DRAKE UMANZOR MD Jan 19, 2019 13:01
--- NOTE | 2019-01-20 06:43 | EKG ---
[facility] [address] [place] [address] Test Date: 2019-01-19 Test Time: 10:05:48 Pat Name: DARLYN SANTOS Department: Room: Gender: F Pharmacy Benefits Coordinator: : 1955 Requested By: DRAKE UMANZOR Order Number: [id number] Reading MD: Measurements Intervals [place] Rate: 87 P: 142 IN: 172 QRS: -174 QRSD: 88 T: 142 QT: 398 QTc: 480 Interpretive Statements SUPRAVENTRICULAR RHYTHM ABNORMAL RIGHT SUPERIOR AXIS DEVIATION S1,S2,S3 PATTERN CONSIDER RIGHT VENTRICULAR HYPERTROPHY QRS(T) CONTOUR ABNORMALITY CONSISTENT WITH HIGH LATERAL INFARCT AGE UNDETERMINED ABNORMAL ECG RI6.01 Unconfirmed report No previous ECG available for comparison
== END 2019-01-19 12:51 | disposition home or self-care (01) ==
LOC: ER 09:46
DX: N39.0 Urinary tract infection, site not specified (principal); R42 Dizziness and giddiness; K21.9 Gastro-esophageal reflux disease without esophagitis; E11.9 Type 2 diabetes mellitus without complications; J45.909 Unspecified asthma, uncomplicated; Z87.442 Personal history of urinary calculi; G89.29 Other chronic pain; Z90.710 Acquired absence of both cervix and uterus; Z98.51 Tubal ligation status; Z91.041 Radiographic dye allergy status; Z88.6 Allergy status to analgesic agent; Z88.5 Allergy status to narcotic agent; Z88.8 Allergy status to other drugs, medicaments and biological substances
CPT/HCPCS: 36415; 74176; 80053; 81001; 83690; 84484; 85025; 87086; 93005; 96361; 96374; 96375; 99285; J0696; J2405; J3010; J7030

== ENCOUNTER 2019-06-09 09:13 | Emergency (ER) | payer MEDICARE, BC ==
[~2019-06-09] VITALS: Ht 160 cm; Wt 97.5 kg
[~2019-06-09 09:13] MED LIST changes: +CEPH500C PO; +OMEP40CA45 PO; -OMEP40CA5 PO
[2019-06-09 09:49] VITALS: BP 162/85
[2019-06-09] MEDS ORDERED: IPRATRPIUM/ALBUTEROL 0.5/2.5MG 3 ML NEBU. NEB ONE (10:00)
[2019-06-09] MEDS ORDERED: ACETAMINOPHEN 500 MG TABLET PO ONE (10:00)
[2019-06-09] MEDS ORDERED: BENZONATATE 100 MG CAPSULE. PO ONE (10:00)
[2019-06-09] MEDS ORDERED: predniSONE 20 MG TABLET PO ONE (10:00)
--- NOTE | 2019-06-09 10:36 | RAD ---
CHEST PA LATERAL History: Cough Comparison: September 09, 2017 Findings: No consolidation or pleural effusion. Normal heart size. Bilateral calcified granulomas. Impression: 1. No acute cardiopulmonary process. Electronically signed by: Rufus Wayne DO (06/09/2019 10:33 AM) [facility]
--- NOTE | 2019-06-09 11:01 | PHYS DOC ---
Past Medical History Past Medical History: Asthma, Bronchitis, Depression, Diabetes-Type II, GERD, Kidney Stone, Other Additional Past Medical Histor: cystitis,bulging disc,DJD,CHRONIC BACK PAIN,SLEEP APNEA Past Surgical History: Hysterectomy, Knee Replacement, Tonsillectomy, Tubal ligation, Other Additional Past Surgical Histo: LAP,back X 2 Alcohol Use: Occasionally Drug Use: None Adult General Chief Complaint Chief Complaint: COUGH HPI HPI Patient is a 63 year old female with history of diabetes type 2, asthma, bronchitis, depression who presents to the ED today complaining of a productive cough for 3 weeks. Patient denies any fever but complaining of body aches. She states she's been trying [id number] remedies with no relief. She states her chest is hurting only when she coughs. Patient is also complaining of what she believes could be a chemical burn on the lower abdomen that she noted this weekend after using Hutson hair removal product. She states this is not her first and using Hutson. Review of Systems Review of Systems Constitutional: Denies fever or chills [] Eyes: Denies change in visual acuity, redness, or eye pain [] HENT: Denies nasal congestion or sore throat [] Respiratory: Reports cough, denies shortness of breath [] Cardiovascular: No additional information not addressed in HPI [] GI: Denies abdominal pain, nausea, vomiting, bloody stools or diarrhea [] : Denies dysuria or hematuria [] Musculoskeletal: Denies back pain or joint pain [] Integument: Reports chemical burn to the right lower abdomen Neurologic: Denies headache, focal weakness or sensory changes [] Endocrine: Denies polyuria or polydipsia [] All other systems were reviewed and found to be within normal limits, except as documented in this note. Current Medications Current Medications Current Medications Medications (Trade) Dose Ordered Sig/Karina Start Time Stop Time Status Last Admin Dose Admin Acetaminophen (Tylenol) 500 mg 1X ONCE 06/09/19 10:00 06/09/19 10:01 DC 06/09/19 10:09 500 MG Albuterol/ Ipratropium (Duoneb) 3 ml 1X ONCE 06/09/19 10:00 06/09/19 10:01 DC 06/09/19 10:10 3 ML Benzonatate (Tessalon Perle) 100 mg 1X ONCE 06/09/19 10:00 06/09/19 10:01 DC 06/09/19 10:09 100 MG Prednisone (Prednisone) 60 mg 1X ONCE 06/09/19 10:00 06/09/19 10:01 DC 06/09/19 10:09 60 MG Allergies Allergies Allergies Coded Allergies Type Severity Reaction Last Updated Verified Iodinated Contrast Media Allergy Intermediate Hives 10/16/17 Yes aspirin Allergy Intermediate Hives 10/16/17 Yes caffeine Allergy Intermediate Hives 10/16/17 Yes morphine Allergy Intermediate NAUSEA 10/16/17 Yes oxycodone HCl Allergy Intermediate NAUSEA 10/16/17 Yes propoxyphene napsylate Allergy Intermediate NAUSEA 10/16/17 Yes ibuprofen Allergy Mild NAUSEA 10/16/17 Yes codeine Adverse Reaction Intermediate N&V STOMACH PAINS 10/16/17 Yes Physical Exam Physical Exam Constitutional: Well developed, well nourished, no acute distress, non-toxic appearance. [] HENT: Normocephalic, atraumatic, bilateral external ears normal, oropharynx moist, no oral exudates, nose normal. [] Eyes: PERRLA, EOMI, conjunctiva normal, no discharge. [] Neck: Normal range of motion, no tenderness, supple, no stridor. [] Cardiovascular:Heart rate regular rhythm, no murmur [] Lungs & Thorax: Coarse lung sounds, actively coughing. Abdomen: Bowel sounds normal, soft, no tenderness, no masses, no pulsatile masses. [] Skin: Obese abdomen, right abdominal flat appears moist, erythematous no signs of bacterial infection. Back: No tenderness, no CVA tenderness. [] Extremities: No tenderness, no cyanosis, no clubbing, ROM intact, no edema. [] Neurologic: Alert and oriented X 3, normal motor function, normal sensory function, no focal deficits noted. [] Psychologic: Affect normal, judgement normal, mood normal. [] Current Patient Data Vital Signs Vital Signs Date Time Temp Pulse Resp B/P (MAP) Pulse Ox O2 Delivery O2 Flow Rate FiO2 06/09/19 10:11 96 Room Air 06/09/19 09:49 98.4 89 20 162/85 (110) 98.4 EKG EKG [] Radiology/Procedures Radiology/Procedures []PROCEDURE: CHEST PA & LATERAL CHEST PA LATERAL History: Cough Comparison: September 09, 2017 Findings: No consolidation or pleural effusion. Normal heart size. Bilateral calcified granulomas. Impression: 1. No acute cardiopulmonary process. Electronically signed by: Rufus Wayne DO (06/09/2019 10:33 AM) [facility] DICTATED and SIGNED BY: RUFUS WAYNE DO DATE: 06/09/19 1033 Course & Med Decision Making Course & Med Decision Making Pertinent Labs and Imaging studies reviewed. (See chart for details) This is a 63-year-old female patient presenting to the ED today complaining of a cough for 3 weeks. Chest x-ray interpreted by radiologist as negative for any acute findings. Symptoms are consistent with bronchitis. She has history of the same-provided prescription for supportive care medications. She is also complaining of what she believed is a chemical burn to the right lower abdominal flap, and evaluation this appears to be a fungal infection more than a chemical burn. Will be discharged with nystatin. Follow-up with PCP in one week. Dragon Disclaimer Dragon Disclaimer This electronic medical record was generated, in whole or in part, using a voice recognition dictation system. Departure Departure Impression: Primary Impression: Acute bronchitis Additional Impression: Cutaneous candidiasis Disposition: 01 HOME, SELF-CARE Condition: STABLE Referrals: SANTANA CARPENTER MD (PCP) Follow-up in 1-2 weeks with your doctor Patient Instructions: Acute Bronchitis, [id number], Cutaneous Candidiasis Additional Instructions: You were evaluated in the emergency room and diagnosed with bronchitis and candidiasis. Use the prescribed medications as ordered. Try to leave the abdomin al area open to air as much as you can. Your prescriptions were sent to your pharmacy. Scripts Albuterol Sulfate (ALBUTEROL SULFATE NEB SOLN) 1.25 Mg/3 Ml Vial.neb 1 VIAL NEB Q6HRS, #150 ML Prov: MUTUNGA,KERVIN BUS DRIVER/MONITOR 06/09/19 Benzonatate (TESSALON PERLE) 100 Mg Capsule 1 CAP PO TID, #30 CAP Prov: MUTUNGA,KERVIN BUS DRIVER/MONITOR 06/09/19 Nystatin (NYSTATIN) 15 Gm Oint...g. 1 THOMAS TP TID, #30 GM 1 Refill Prov: MUTUNGA,KERVIN BUS DRIVER/MONITOR 06/09/19 Promethazine Hcl (PROMETHAZINE HCL) 6.25 Mg/5 Ml Syrup 5 ML PO TID PRN for COUGH, #150 ML 0 Refills Prov: MUTUNGA,KERVIN BUS DRIVER/MONITOR 06/09/19 Prednisone (PREDNISONE) 50 Mg Tablet 1 TAB PO DAILY, #4 TAB Prov: KERVIN SARGENT APRN 06/09/19 Albuterol Sulfate (Proventil Hfa) 6.7 Gm Hfa.aer.ad 1 PUFF INH PRN Q6HRS PRN for SHORTNESS OF BREATH, #1 INHALER 1 Refill Prov: KERVIN SARGENT APRN 06/09/19 Problem Qualifiers Primary Impression: Acute bronchitis Bronchitis organism: unspecified organism Qualified Codes: J20.9 - Acute bronchitis, unspecified KERVIN SARGENT APRN Jun 09, 2019 11:01
[2019-06-09] MEDS ORDERED: PROVENTIL HFA6.7 G2 INH (11:07)
[2019-06-09] MEDS ORDERED: NYST15OI TP (11:07)
[2019-06-09] MEDS ORDERED: PRED50TA PO (11:07)
[2019-06-09] MEDS ORDERED: PROM6.257 PO (11:07)
[2019-06-09] MEDS ORDERED: BENZ100C PO (11:07)
[2019-06-09] MEDS ORDERED: ALBU1.25 NEB (11:19)
== END 2019-06-09 11:17 | disposition home or self-care (01) ==
LOC: ER 09:13
DX: J20.9 Acute bronchitis, unspecified (principal); B37.2 Candidiasis of skin and nail; J45.909 Unspecified asthma, uncomplicated; F32.9 Major depressive disorder, single episode, unspecified; E11.9 Type 2 diabetes mellitus without complications; K21.9 Gastro-esophageal reflux disease without esophagitis; G89.29 Other chronic pain; Z87.442 Personal history of urinary calculi; Z90.710 Acquired absence of both cervix and uterus; Z90.89 Acquired absence of other organs; Z98.51 Tubal ligation status; Z96.659 Presence of unspecified artificial knee joint; Z88.6 Allergy status to analgesic agent; Z88.5 Allergy status to narcotic agent; Z88.8 Allergy status to other drugs, medicaments and biological substances; Z91.041 Radiographic dye allergy status; E66.9 Obesity, unspecified; Z68.38 Body mass index [BMI] 38.0-38.9, adult
CPT/HCPCS: 71046; 94640; 99284; J7512; J7620

== ENCOUNTER 2020-03-22 06:18 | Emergency (ER) | payer BC, MEDICARE ==
[~2020-03-22] VITALS: Ht 160 cm; Wt 86.5 kg
[~2020-03-22 06:18] MED LIST changes: +ALBU1.25 NEB; +BENZ100C PO; -CETI10TA22 PO; +CETI10TA74 PO; +ESTR-113 PO; -ESTR1TAB15 PO; +NYST15OI TP; +PROM6.257 PO; +PROVENTIL HFA6.7 G2 INH
[2020-03-22 07:10] VITALS: BP 177/93
[2020-03-22] MEDS ORDERED: ONDANSETRON ODT 4 MG TAB.RAPDIS. PO ONE (07:30)
[2020-03-22] MEDS ORDERED: MORPHINE IR 15 MG TABLET PO ONE (07:30)
[2020-03-22] MEDS ORDERED: MORPHINE SULFATE 10 MG/5 ML ORAL SOLUTION. PO ONE (07:45)
[2020-03-22] MEDS ORDERED: ONDA4TAB7 PO (08:16)
[2020-03-22] MEDS ORDERED: MORP15TA PO ×2 (08:16→10:59)
[2020-03-22] MEDS ORDERED: CLIN150C14 PO (08:16)
--- NOTE | 2020-03-22 08:20 | PHYS DOC ---
Past Medical History Past Medical History: Asthma, Bronchitis, Depression, Diabetes-Type II, GERD, Kidney Stone, Other Additional Past Medical Histor: cystitis,bulging disc,DJD,CHRONIC BACK PAIN,SLEEP APNEA Past Surgical History: Hysterectomy, Knee Replacement, Tonsillectomy, Tubal ligation, Other Additional Past Surgical Histo: LAP,back X 2 Smoking Status: Never Smoker Alcohol Use: Occasionally Drug Use: None General Adult EDM: Chief Complaint: DENTAL PROBLEM HPI: HPI: Patient is a 64 year old female who presents with left-sided dental pain. She is supposed to have 2 teeth pulled on Sunday. She states on Sunday the pain in her mouth got significantly worse. She has been taking hydrocodone at home and initially it was helping her but now it is no longer helping. She is also taking Tylenol and doing ice packs at home. Overnight she developed severe swelling in her face. She states is very painful to talk though she cannot talk when she needs to. She is not having any difficulty with swallowing. She states that the pain is an aching pain. Review of Systems: Review of Systems: General: Denies fever, chills, sweats, fatigue Eyes: Denies drainage, blurred vision, eye redness HENT: Denies rhinorrhea, sore throat, earache reports teeth pain Respiratory: Denies cough, shortness of breath, wheezing Cardiac: Denies edema, palpitations, chest pain GI: Denies abdominal pain, Nausea, vomiting MSK: Denies back pain, neck pain Skin: Denies rash, jaundice Neuro: Denies headache, dizziness Psychiatric: Denies SI/HI Heart Score: Risk Factors: Risk Factors: DM, Current or recent (<one month) smoker, HTN, HLP, family history of CAD, obesity. Risk Scores: Score 0 - 3: 2.5% MACE over next 6 weeks - Discharge Home Score 4 - 6: 20.3% MACE over next 6 weeks - Admit for Clinical Observation Score 7 - 10: 72.7% MACE over next 6 weeks - Early Invasive Strategies Current Medications: Current Medications Medications (Trade) Dose Ordered Sig/Karina Start Time Stop Time Status Last Admin Dose Admin Morphine Sulfate (Morphine Ir) 10 mg 1X ONCE 03/22/20 07:30 03/22/20 07:31 UNV Morphine Sulfate (Morphine Oral Solution) 10 mg 1X ONCE 03/22/20 07:45 03/22/20 07:46 DC 03/22/20 08:01 10 MG Ondansetron HCl (Zofran Odt) 4 mg 1X ONCE 03/22/20 07:30 03/22/20 07:32 DC 03/22/20 08:00 4 MG Allergies: Allergies: Allergies Coded Allergies Type Severity Reaction Last Updated Verified Iodinated Contrast Media Allergy Intermediate Hives 10/16/17 Yes aspirin Allergy Intermediate Hives 10/16/17 Yes caffeine Allergy Intermediate Hives 10/16/17 Yes propoxyphene napsylate Allergy Intermediate NAUSEA 10/16/17 Yes codeine Adverse Reaction Intermediate N&V STOMACH PAINS 10/16/17 Yes ibuprofen Adverse Reaction Intermediate NAUSEA 03/22/20 Yes morphine Adverse Reaction Intermediate NAUSEA 03/22/20 Yes oxycodone HCl Adverse Reaction Intermediate NAUSEA 03/22/20 Yes Physical Exam: PE: General: Awake, alert, NAD. Well Nourished, well hydrated. Cooperative HEENT: Atraumatic, EOMI, PERRL, airway patent, moist oral mucosa. Left-sided facial swelling, dental caries, mild gum swelling on the upper left side without signs of a drainable abscess Neck: Supple, trachea midline Respiratory: CTA bilaterally, normal effort, no wheezing/crackles CV: RRR, no murmur, cap refill <2 GI: Soft, nondistended, nontender, no masses MSK: No obvious deformities Skin: Warm, dry, intact Neuro: A&O x3, speech NL, sensory and motor grossly intact, no focal deficits Psych: Normal affect, normal mood, not suicidal or homicidal Current Patient Data: Vital Signs: Vital Signs Date Time Temp Pulse Resp B/P (MAP) Pulse Ox O2 Delivery O2 Flow Rate FiO2 03/22/20 08:01 18 96 Room Air 03/22/20 07:10 98.3 95 177/93 (121) 98.3 EKG: EKG: [] Radiology/Procedures: Radiology/Procedures: [] Course & Med Decision Making: Course & Med Decision Making Pertinent Labs and Imaging studies reviewed. (See chart for details) Patient is 64-year-old female who presents to the emergency room with dental pain. Patient appears to have a dental infection. There is no signs of a drainable abscess. She is able to open her mouth, talk, swallow without difficulty when pushed to do so. She initially did refuse to talk but is able to talk. There is no signs of Ludwigs. There is no swelling under the tongue. She has an appointment to get her infected teeth pulled in [address] her on clindamycin and switch her pain medicine. I discussed with her doing ice to help with swelling. Patient's test results and vitals while in the ED were fully reviewed and discussed with the patient. Patient is stable and at this time does not need admission to the hospital. We have discussed strict return precautions and the importance of following up with their Primary Care Physician. Patient stated understanding and was given an opportunity to ask any questions. Patient is in agreement with plan. Dragon Disclaimer: Dragon Disclaimer: This electronic medical record was generated, in whole or in part, using a voice recognition dictation system. Departure Departure Impression: Primary Impression: Dental infection Additional Impression: Facial swelling Disposition: HOME, SELF-CARE Condition: STABLE Referrals: SANTANA CARPENTER MD (PCP) Patient Instructions: Dental Abscess Scripts Morphine Sulfate (MORPHINE SULFATE) 15 Mg Tablet 1 TAB PO TID PRN for SEVERE PAIN 7-10, #10 TAB Prov: KALLIE ALLEN MD 03/22/20 Clindamycin Hcl (CLINDAMYCIN HCL) 150 Mg Capsule 1 CAP PO QID, #28 CAP Prov: KALLIE ALLEN MD 03/22/20 Ondansetron Hcl (ZOFRAN) 4 Mg Tablet 1 TAB PO PRN Q6-8HRS for nausea, #12 TAB Prov: KALLIE ALLEN MD 03/22/20 Justicifation of Admission Dx: Justifications for Admission: Justification of Admission Dx: No KALLIE ALLEN MD Mar 22, 2020 08:20
[2020-03-22] MEDS ORDERED: MORPHINE SULFATE 10 MG/5 ML ORAL SOLUTION. PO STA (10:25)
--- NOTE | 2020-03-22 12:58 | PHYS DOC ---
Past Medical History Past Medical History: Asthma, Bronchitis, Depression, Diabetes-Type II, GERD, Kidney Stone, Other Additional Past Medical Histor: cystitis,bulging disc,DJD,CHRONIC BACK PAIN,SLEEP APNEA Past Surgical History: Hysterectomy, Knee Replacement, Tonsillectomy, Tubal ligation, Other Additional Past Surgical Histo: LAP,back X 2 Smoking Status: Never Smoker Alcohol Use: Occasionally Drug Use: None General Adult EDM: Chief Complaint: DENTAL PROBLEM HPI: HPI: Patient is a 64 year old [f__sex] who presents with [] Review of Systems: Review of Systems: Constitutional: Denies fever or chills. [] Eyes: Denies change in visual acuity. [] HENT: Denies nasal congestion or sore throat. [] Respiratory: Denies cough or shortness of breath. [] Cardiovascular: Denies chest pain or edema. [] GI: Denies abdominal pain, nausea, vomiting, bloody stools or diarrhea. [] : Denies dysuria. [] Musculoskeletal: Denies back pain or joint pain. [] Integument: Denies rash. [] Neurologic: Denies headache, focal weakness or sensory changes. [] Endocrine: Denies polyuria or polydipsia. [] Lymphatic: Denies swollen glands. [] Psychiatric: Denies depression or anxiety. [] Heart Score: Risk Factors: Risk Factors: DM, Current or recent (<one month) smoker, HTN, HLP, family history of CAD, obesity. Risk Scores: Score 0 - 3: 2.5% MACE over next 6 weeks - Discharge Home Score 4 - 6: 20.3% MACE over next 6 weeks - Admit for Clinical Observation Score 7 - 10: 72.7% MACE over next 6 weeks - Early Invasive Strategies Current Medications: Current Medications Medications (Trade) Dose Ordered Sig/Karina Start Time Stop Time Status Last Admin Dose Admin Morphine Sulfate (Morphine Ir) 10 mg 1X ONCE 03/22/20 07:30 03/22/20 07:31 UNV Ondansetron HCl (Zofran Odt) 4 mg 1X ONCE 03/22/20 07:30 03/22/20 07:31 UNV Allergies: Allergies: Allergies Coded Allergies Type Severity Reaction Last Updated Verified Iodinated Contrast Media Allergy Intermediate Hives 10/16/17 Yes aspirin Allergy Intermediate Hives 10/16/17 Yes caffeine Allergy Intermediate Hives 10/16/17 Yes morphine Allergy Intermediate NAUSEA 10/16/17 Yes oxycodone HCl Allergy Intermediate NAUSEA 10/16/17 Yes propoxyphene napsylate Allergy Intermediate NAUSEA 10/16/17 Yes ibuprofen Allergy Mild NAUSEA 10/16/17 Yes codeine Adverse Reaction Intermediate N&V STOMACH PAINS 10/16/17 Yes Physical Exam: PE: Constitutional: Well developed, well nourished, no acute distress, non-toxic appearance. [] HENT: Normocephalic, atraumatic, bilateral external ears normal, oropharynx moist, no oral exudates, nose normal. [] Eyes: PERRLA, EOMI, conjunctiva normal, no discharge. [] Neck: Normal range of motion, no tenderness, supple, no stridor. [] Cardiovascular:Heart rate regular rhythm, no murmur [] Lungs & Thorax: Bilateral breath sounds clear to auscultation [] Abdomen: Bowel sounds normal, soft, no tenderness, no masses, no pulsatile masses. [] Skin: Warm, dry, no erythema, no rash. [] Back: No tenderness, no CVA tenderness. [] Extremities: No tenderness, no cyanosis, no clubbing, ROM intact, no edema. [] Neurologic: Alert and oriented X 3, normal motor function, normal sensory function, no focal deficits noted. [] Psychologic: Affect normal, judgement normal, mood normal. [] Current Patient Data: Vital Signs: Vital Signs Date Time Temp Pulse Resp B/P (MAP) Pulse Ox O2 Delivery O2 Flow Rate FiO2 03/22/20 07:10 98.3 95 18 177/93 (121) 96 Room Air 98.3 EKG: EKG: [] Radiology/Procedures: Radiology/Procedures: [] Course & Med Decision Making: Course & Med Decision Making Pertinent Labs and Imaging studies reviewed. (See chart for details) [] Dragon Disclaimer: Dragon Disclaimer: This electronic medical record was generated, in whole or in part, using a voice recognition dictation system. Departure Departure Referrals: SANTANA CARPENTER MD (PCP) Scripts Morphine Sulfate (MORPHINE SULFATE) 15 Mg Tablet 1 TAB PO TID PRN for SEVERE PAIN 7-10, #10 TAB Prov: KALLIE ALLEN MD 03/22/20 Clindamycin Hcl (CLINDAMYCIN HCL) 150 Mg Capsule 1 CAP PO QID, #28 CAP Prov: KALLIE ALLEN MD 03/22/20 Ondansetron Hcl (ZOFRAN) 4 Mg Tablet 1 TAB PO PRN Q6-8HRS for nausea, #12 TAB Prov: KALLIE ALLEN MD 03/22/20 KALLIE ALLEN MD Mar 22, 2020 12:58
== END 2020-03-22 11:50 | disposition home or self-care (01) ==
LOC: ER 06:18
DX: K04.7 Periapical abscess without sinus (principal); R22.0 Localized swelling, mass and lump, head; J45.909 Unspecified asthma, uncomplicated; F32.9 Major depressive disorder, single episode, unspecified; E11.9 Type 2 diabetes mellitus without complications; K21.9 Gastro-esophageal reflux disease without esophagitis; G89.29 Other chronic pain; Z87.442 Personal history of urinary calculi; Z90.710 Acquired absence of both cervix and uterus; Z98.51 Tubal ligation status; Z90.89 Acquired absence of other organs; Z98.890 Other specified postprocedural states; Z91.040 Latex allergy status; Z88.6 Allergy status to analgesic agent; Z88.5 Allergy status to narcotic agent; Z88.8 Allergy status to other drugs, medicaments and biological substances
CPT/HCPCS: 99284

== ENCOUNTER → 2020-06-29 | Outpatient (CLI) | payer MEDICARE ==
[~2020-06-29] MED LIST changes: +ALBU2.5V14 NEB; +AMLO-187 PO; +CLIN150C14 PO; +DULA0.75 SQ; +HORMONE; +HYDR-2765 PO; +MORP15TA PO; +ONDA4TAB7 PO
== END ==
LOC: LAB 13:43
PROVIDERS: ATTEND Orthopaedic Surgery
DX: Z01.812 Encounter for preprocedural laboratory examination (principal); Z20.828 Contact with and (suspected) exposure to other viral communicable diseases; M76.62 Achilles tendinitis, left leg; S86.012A Strain of left Achilles tendon, initial encounter; X58.XXXA Exposure to other specified factors, initial encounter; Y92.89 Other specified places as the place of occurrence of the external cause; Y93.89 Activity, other specified; Y99.8 Other external cause status
CPT/HCPCS: U0003

== ENCOUNTER 2020-07-02 06:03 | Day surgery (SDC) | payer BC, MEDICARE ==
[~2020-07-02] VITALS: Ht 160 cm; Wt 87.1 kg
[~2020-07-02 06:03] MED LIST changes: +BUPIVACAINE-EPI 0.25%-1:200000 MPF 30 ML VIAL. INJ ONE
[2020-07-02] MEDS ORDERED: ROCURONIUM 50 MG/5 ML VIAL. ONE (06:15)
[2020-07-02] MEDS ORDERED: LIDOCAINE 2% PF 5 ML VIAL. ONE (06:15)
[2020-07-02] MEDS ORDERED: DEXAMETHASONE SOD PHOS 4 MG/ML VIAL ONE (06:15)
[2020-07-02] MEDS ORDERED: ONDANSETRON PF 4 MG/2 ML VIAL. ONE (06:15)
[2020-07-02] MEDS ORDERED: SEVOFLURANE > 120 MINUTES. IH ONE (06:15)
[2020-07-02] MEDS ORDERED: fentaNYL PF VIAL 100 MCG/2 ML VIAL ONE ×3 (06:15→09:53)
[2020-07-02] MEDS ORDERED: PROPOFOL 10 MG/ML (20ML) VIAL. IV ONE (06:15)
[2020-07-02] MEDS ORDERED: MIDAZOLAM HCL/PF 2 MG/2 ML VIAL. ONE (06:32)
[2020-07-02] MEDS ORDERED: HYDROmorphone 2 MG/ML VIAL IV PRN (07:00)
[2020-07-02] MEDS ORDERED: MORPHINE SULFATE 2 MG/ML VIAL. IV PRN (07:00)
[2020-07-02] MEDS ORDERED: fentaNYL PF VIAL 100 MCG/2 ML VIAL IV PRN (07:00)
[2020-07-02] MEDS ORDERED: ONDANSETRON PF 4 MG/2 ML VIAL. IV PRN (07:00)
[2020-07-02] MEDS ORDERED: LIDOCAINE 1% PF 2 ML VIAL. ID PRN (07:00)
[2020-07-02] MEDS ORDERED: PROCHLORPERAZINE 10 MG/2 ML VIAL. IV PRN (07:00)
[2020-07-02] MEDS ORDERED: SUCCINYLCHOLINE 200 MG/10 ML VIAL. ONE (07:12)
[2020-07-02] MEDS ORDERED: DEXTROSE 50% 25 GM / 50ML DISP.SYRIN. IV ONE (07:15)
[2020-07-02] MEDS: IV RINGERS,LACTATED 1000ML 1,000 ML IV SCH ×2 (07:28→10:55)
[2020-07-02 07:31] LABS: BASO % 0 % (0-3); EOS % 0 % (0-3); HEMATOCRIT 38.2 % (36.0-47.0); HEMOGLOBIN 12.5 g/dL (12.0-15.5); LYMPH # 1.4 x10^3/uL (1.0-4.8); LYMPH % 40 % (24-48); MEAN CORPUSCULAR HEMOGLOBIN 29 pg (25-35); MEAN CORPUSCULAR HGB CONC 33 g/dL (31-37); MEAN CORPUSCULAR VOLUME 88 fL (79-100); MONO # 0.4 x10^3/uL (0.0-1.1); MONO % 11 % (0-9); NEUT # 1.7 x10^3/uL (1.8-7.7); NEUT % 48 % (31-73); PLATELET COUNT 231 x10^3/uL (140-400); RED BLOOD COUNT 4.34 x10^6/uL (3.50-5.40); RED CELL DISTRIBUTION WIDTH 15.1 % (11.5-14.5); WHITE BLOOD COUNT 3.4 x10^3/uL (4.0-11.0)
[2020-07-02 07:42] LABS: CREATININE 0.7 mg/dL (0.6-1.0); GFR 101.3; POTASSIUM 4.1 mmol/L (3.5-5.1)
--- NOTE | 2020-07-02 07:53 | PDOC1 ---
History and Physical Date of Admission Date of Admission DATE: 07/02/20 TIME: 07:53 Identification/Chief Complaint Chief Complaint Left ankle pain, partial Achilles tendon tear, Achilles tendinitis Source Source: Chart review, Patient History of Present Illness History of Present Illness Ms chambers is a 64-year-old woman with persistent left ankle pain, partial te aring of her Achilles, prominent bone spur on ultrasound, and painful insertional Achilles tendinitis with partial tearing. We tried nonoperative treatment without success. I offered surgical treatment and discussed the risks and benefits. Surgical risks discussed included infection, blood clots, scarring, continued pain or weakness, rupture of the tendon, prolonged recovery, and need for physical therapy. She stated understanding of the risks benefits and alternatives and desired to proceed. All of her questions about surgery were answered and a written consent was obtained. Her previous ultrasound showed evidence of Achilles tendinosis with a possible small tear. At her last visit I recommended CAM walker and formal physical therapy (iontophoresis). At this point, she notes that her ankle, and knee as well, are painful as she notes that the CAM walker puts a strain on her knee. The patient believes that her pain has decreased from use of her boot and iontophoresis although she really doesn't believe that it has helped much. Denies smoking. She is borderline diabetic and gets occasional keloid scars. She is here today for elective left ankle surgery including Achilles tendon repair and probable excision of the prominent bone. Past Medical History Cardiovascular: No pertinent hx Pulmonary: No pertinent hx GI: Constipation, Diverticulosis Heme/Onc: No pertinent hx Hepatobiliary: No pertinent hx Psych: Anxiety Musculoskeletal: low back pain Rheumatologic: No pertinent hx Infectious disease: No pertinent hx Endocrine: No pertinent hx Past Surgical History Past Surgical History: Total knee replacement, Hysterectomy Family History Family History: Heart Disease Social History ALCOHOL: none Current Medications Current Medications Current Medications Ondansetron HCl (Zofran) 4 mg PRN Q6HRS PRN IV NAUSEA/VOMITING; Start 07/02/20 at 07:00; Stop 07/03/20 at 06:59 Fentanyl Citrate (Fentanyl 2ml Vial) 25 mcg PRN Q5MIN PRN IV MILD PAIN 1-3; Start 07/02/20 at 07:00; Stop 07/03/20 at 06:59 Fentanyl Citrate (Fentanyl 2ml Vial) 50 mcg PRN Q5MIN PRN IV MODERATE TO SEVERE PAIN; Start 07/02/20 at 07:00; Stop 07/03/20 at 06:59 Morphine Sulfate (Morphine Sulfate) 1 mg PRN Q10MIN PRN IV SEVERE PAIN 7-10; Start 07/02/20 at 07:00; Stop 07/03/20 at 06:59 Ringer's Solution 1,000 ml @ 30 mls/hr Q24H IV Last administered on 07/02/20at 07:28; Start 07/02/20 at 07:00; Stop 07/02/20 at 18:59 Lidocaine HCl (Xylocaine-Mpf 1% 2ml Vial) 2 ml PRN 1X PRN ID PRIOR TO IV START; Start 07/02/20 at 07:00; Stop 07/03/20 at 06:59 Hydromorphone HCl (Dilaudid) 0.5 mg PRN Q10MIN PRN IV SEV PAIN, Second choice; Start 07/02/20 at 07:00; Stop 07/03/20 at 06:59 Prochlorperazine Edisylate (Compazine) 5 mg PACU PRN PRN IV NAUSEA, MRX1; Start 07/02/20 at 07:00; Stop 07/03/20 at 06:59 Bupivacaine HCl/ Epinephrine Bitart (Sensorcaine-Epi 0.25%-1:077259 Mpf) 30 ml 1X ONCE INJ ; Start 07/02/20 at 06:00; Stop 07/02/20 at 06:01; Status DC Cefazolin Sodium/ Dextrose 50 ml @ 100 mls/hr 1X PREOP PRN IV PRIOR TO PROCEDURE; Start 07/02/20 at 06:00; Stop 07/02/20 at 18:00 Rocuronium [place] (Zemuron) 50 mg STK-MED ONCE .ROUTE ; Start 07/02/20 at 06:15; Stop 07/02/20 at 06:15; Status DC Fentanyl Citrate (Fentanyl 2ml Vial) 100 mcg STK-MED ONCE .ROUTE ; Start 07/02/20 at 06:15; Stop 07/02/20 at 06:15; Status DC Sevoflurane (Ultane) 90 ml STK-MED ONCE IH ; Start 07/02/20 at 06:15; Stop 07/02/20 at 06:15; Status DC Propofol (Diprivan) 200 mg STK-MED ONCE IV ; Start 07/02/20 at 06:15; Stop 07/02/20 at 06:16; Status DC Dexamethasone Sodium Phosphate (Decadron) 4 mg STK-MED ONCE .ROUTE ; Start 07/02/20 at 06:15; Stop 07/02/20 at 06:16; Status DC Lidocaine HCl (Lidocaine Pf 2% Vial) 5 ml STK-MED ONCE .ROUTE ; Start 07/02/20 at 06:15; Stop 07/02/20 at 06:16; Status DC Ondansetron HCl (Zofran) 4 mg STK-MED ONCE .ROUTE ; Start 07/02/20 at 06:15; Stop 07/02/20 at 06:16; Status DC Midazolam HCl (Versed) 2 mg STK-MED ONCE .ROUTE ; Start 07/02/20 at 06:32; Stop 07/02/20 at 06:32; Status DC Succinylcholine Chloride (Anectine) 200 mg STK-MED ONCE .ROUTE ; Start 07/02/20 at 07:12; Stop 07/02/20 at 07:12; Status DC Dextrose (Dextrose 50%-Water Syringe) 25 gm 1X ONCE IV Last administered on 07/02/20at 07:28; Start 07/02/20 at 07:15; Stop 07/02/20 at 07:16; Status DC Active Scripts Active Colace (Docusate Sodium) 100 Mg Capsule 100 Mg PO BID Reported Albuterol Sulfate Conc Neb Soln (Albuterol Sulfate) 2.5 Mg/0.5 Ml Vial.neb 1 Vial NEB PRN Q6HRS PRN Diazepam 10 Mg Tablet 10 Mg PO PRN QID PRN [hormone injection] Q4WK Amlodipine Besylate 10 Mg Tablet 10 Mg PO DAILY Hydrocodone-Apap 7.5-325 (Hydrocodone Bit/Acetaminophen) 1 Tab Tablet 1 Tab PO PRN Q6HRS PRN Trulicity (Dulaglutide) 0.75 Mg/0.5 Ml Pen.injctr 0.75 Mg SQ WEEKLY Ambien (Zolpidem Tartrate) 10 Mg Tablet 10 Mg PO HS PRN Lasix (Furosemide) 40 Mg Tablet 40 Mg PO PRN DAILY PRN Metformin Hcl 500 Mg Tablet 500 Mg PO DAILY Flonase (Fluticasone Propionate) 16 Gm [place].susp 16 Gm NS DAILY Allergies Allergies: Coded Allergies: Iodinated Contrast Media (Verified Allergy, Intermediate, Hives, 06/29/20) aspirin (Verified Allergy, Intermediate, Hives, 06/29/20) caffeine (Verified Allergy, Intermediate, Hives, 06/29/20) propoxyphene napsylate (Verified Allergy, Intermediate, NAUSEA, 06/29/20) codeine (Verified Adverse Reaction, Intermediate, N&V STOMACH PAINS, 06/29/20) hydrocodone okay ibuprofen (Verified Adverse Reaction, Intermediate, NAUSEA, 06/29/20) morphine (Verified Adverse Reaction, Intermediate, NAUSEA, 06/29/20) hydrocodone okay oxycodone HCl (Verified Adverse Reaction, Intermediate, NAUSEA, 06/29/20) hydrocodone okay Physical Exam General: Alert, Cooperative HEENT: Atraumatic Lungs: Normal air movement Heart: RRR Abdomen: Soft Extremities: No edema, Normal pulses, Other (The LEFT ankle shows normal alignment. Tenderness over the Achilles' insertion with localized swelling. Normal Barnes test. Normal pulses. Active dorsiflexion to 15 degrees. ) Skin: No breakdown, No significant lesion Vitals Vitals Vital Signs Date Time Temp Pulse Resp B/P (MAP) Pulse Ox O2 Delivery O2 Flow Rate FiO2 07/02/20 06:56 97.1 74 18 133/86 99 Room Air 97.1 Labs Labs Laboratory Tests Test 07/02/20 06:48 White Blood Count 3.4 x10^3/uL (4.0-11.0) Red Blood Count 4.34 x10^6/uL (3.50-5.40) Hemoglobin 12.5 g/dL (12.0-15.5) Hematocrit 38.2 % (36.0-47.0) Mean Corpuscular Volume 88 fL (79-100) Mean Corpuscular Hemoglobin 29 pg (25-35) Mean Corpuscular Hemoglobin Concent 33 g/dL (31-37) Red Cell Distribution Width 15.1 % (11.5-14.5) Platelet Count 231 x10^3/uL (140-400) Neutrophils (%) (Auto) 48 % (31-73) Lymphocytes (%) (Auto) 40 % (24-48) Monocytes (%) (Auto) 11 % (0-9) Eosinophils (%) (Auto) 0 % (0-3) Basophils (%) (Auto) 0 % (0-3) Neutrophils # (Auto) 1.7 x10^3/uL (1.8-7.7) Lymphocytes # (Auto) 1.4 x10^3/uL (1.0-4.8) Monocytes # (Auto) 0.4 x10^3/uL (0.0-1.1) Eosinophils # (Auto) 0.0 x10^3/uL (0.0-0.7) Basophils # (Auto) 0.0 x10^3/uL (0.0-0.2) Sodium Level 140 mmol/L (136-145) Potassium Level 4.1 mmol/L (3.5-5.1) Chloride Level 104 mmol/L (98-107) Carbon Dioxide Level 31 mmol/L (21-32) Anion Gap 5 (6-14) Blood Urea Nitrogen 12 mg/dL (7-20) Creatinine 0.7 mg/dL (0.6-1.0) Estimated GFR (Cockcroft-Gault) 101.3 Glucose Level 85 mg/dL (70-99) Calcium Level 9.0 mg/dL (8.5-10.1) Laboratory Tests Test 07/02/20 06:48 White Blood Count 3.4 x10^3/uL (4.0-11.0) Red Blood Count 4.34 x10^6/uL (3.50-5.40) Hemoglobin 12.5 g/dL (12.0-15.5) Hematocrit 38.2 % (36.0-47.0) Mean Corpuscular Volume 88 fL (79-100) Mean Corpuscular Hemoglobin 29 pg (25-35) Mean Corpuscular Hemoglobin Concent 33 g/dL (31-37) Red Cell Distribution Width 15.1 % (11.5-14.5) Platelet Count 231 x10^3/uL (140-400) Neutrophils (%) (Auto) 48 % (31-73) Lymphocytes (%) (Auto) 40 % (24-48) Monocytes (%) (Auto) 11 % (0-9) Eosinophils (%) (Auto) 0 % (0-3) Basophils (%) (Auto) 0 % (0-3) Neutrophils # (Auto) 1.7 x10^3/uL (1.8-7.7) Lymphocytes # (Auto) 1.4 x10^3/uL (1.0-4.8) Monocytes # (Auto) 0.4 x10^3/uL (0.0-1.1) Eosinophils # (Auto) 0.0 x10^3/uL (0.0-0.7) Basophils # (Auto) 0.0 x10^3/uL (0.0-0.2) Sodium Level 140 mmol/L (136-145) Potassium Level 4.1 mmol/L (3.5-5.1) Chloride Level 104 mmol/L (98-107) Carbon Dioxide Level 31 mmol/L (21-32) Anion Gap 5 (6-14) Blood Urea Nitrogen 12 mg/dL (7-20) Creatinine 0.7 mg/dL (0.6-1.0) Estimated GFR (Cockcroft-Gault) 101.3 Glucose Level 85 mg/dL (70-99) Calcium Level 9.0 mg/dL (8.5-10.1) Images Images TERRELL DRAKE, AUTOMOBILE BODY REPAIRER HELPER-C DATE: 03/03/2020 11:15 AM [address] [place] [address] DIC LOCATION: [facility] NAME: DARLYN CHAMBERS : 1955 ACC: [id number] ULTRASOUND LOWER EXTREMITY COMPLETE - LEFT ANKLE: TECHNIQUE: High-resolution sonographic evaluation of the extremity including musculotendinous, periarticular and soft tissue structures. INDICATION: Pain COMPARISON: None FINDINGS: There is marked thickening of the distal Achilles tendon just proximal to the insertion. The tendon is hypoechoic with interspersed areas of hyperechoic calcification and enthesophytes. Possible small intrasubstance tear of the deep fibers measuring up to 3 mm. No retrocalcaneal bursitis. No soft tissue mass or fluid collection. IMPRESSION: Distal Achilles tendinosis with possible small intrasubstance tear. Electronically Signed By: SADIA MACARIO MD on 2020-03-03 11:01:18 VTE Prophylaxis Ordered VTE Prophylaxis Devices: Yes VTE Pharmacological Prophylaxi: Yes Assessment/Plan Assessment/Plan This patient is a 64 -year-old with persistent left ankle pain, partial tearing of her Achilles, prominent bone spur on ultrasound, and painful insertional Achilles tendinitis with partial tearing. We tried nonoperative treatment without success. I offered surgical treatment and discussed the risks and benefits. Surgical risks discussed included infection, blood clots, scarring, continued pain or weakness, rupture of the tendon, prolonged recovery, and need for physical therapy. She stated understanding of the risks benefits and alternatives and desired to proceed. All of her questions about surgery were answered and a written consent was obtained. She is here today for elective surgery. Justifications for Admission Other Justification DANIELLE DUBON MD Jul 02, 2020 07:53
[2020-07-02] MEDS ORDERED: SEVOFLURANE 61 TO 120 MINUTES. IH ONE (08:49)
[2020-07-02] MEDS ORDERED: ePHEDrine PF IN SALINE 50 MG/10 ML SYRINGE. IV ONE (08:49)
[2020-07-02] MEDS ORDERED: NEOSTIGMINE METHYLSULFATE 5 MG/5 ML SYRINGE. ONE (08:49)
[2020-07-02] MEDS ORDERED: PHENYLEPHRINE in 0.9% NACL PF 1 MG/10 ML SYRINGE. IV ONE (08:49)
[2020-07-02] MEDS ORDERED: GLYCOPYRROLATE 1 MG/5 ML VIAL. ONE (08:49)
[2020-07-02] MEDS ORDERED: BUPIVACAINE MPF 0.25% 30 ML VIAL. ONE (09:00)
--- NOTE | 2020-07-02 09:28 | PDOC4 ---
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 Prominent enthesophyte of the calcaneus with prominent sclerosis and degenerative bone formation. Indications for Procedure: This patient is a 64 -year-old with persistent left ankle pain, partial tearing of her Achilles, prominent bone spur on ultrasound, and painful insertional Achilles tendinitis with partial tearing. We tried nonoperative treatment without success. I offered surgical treatment and discussed the risks and benefits. Surgical risks discussed included infection, blood clots, scarring, continued pain or weakness, rupture of the tendon, prolonged recovery, and need for physical therapy. She stated understanding of the risks benefits and alternatives and desired to proceed. All of her questions about surgery were answered and a written consent was obtained. Procedure in Detail: The patient was identified in the preoperative holding area. The correct left lower extremity was marked by me. The patient was taken to the operating room where general anesthetic was used. The patient was positioned prone on the operating table with the bony prominences well-padded and with the eyes protected. A tourniquet was applied to the upper portion of the limb. Preoperative antibiotics were given intravenously. A timeout procedure was performed. The limb was prepared in sterile fashion with ChloraPrep, and then sterile drapes were applied. A sterile glove was placed over the toes and and foot, as much as possible to still allow an incision at the posterior calcaneus. A posterior medial incision was used, on the medial border of the Achilles tendon, and extended to the calcaneal tuberosity. Sharp dissection was used and Bovie electrocautery was used only as needed in the subcutaneous tissues for hemostasis. Care was made not to injure the sural nerve, nor the posterior medial neurovascular structures. A 15 blade scalpel was used to incise the peritenon which appeared degenerative, and the tendon was exposed. There was prominent degenerative tearing, a bulbous enthesophyte, and typical findings for insertional tendinitis. A longitudinal split was made in the distal Achilles tendon with a 15 blade scalpel, extending all the way to its most distal insertion on the calcaneal tuberosity. I then reflected the flaps medially and laterally away from the bone using the 15 blade scalpel, and elevated the partially torn tendon from the prominent tuberosity and enthesophyte. I then used an osteotome to resect approximately 2.5 cm diameter wafer of bone, nearly 1 cm in thickness, performing the ostectomy. This removed the palpably prominent and sclerotic bone, and contoured the posterior calcaneus to an anatomic and smooth shape, and exposed to the cancellous bone of the calcaneus nicely for bone marrow healing elements. A tap was used to create a deep perforation into the central exposed cancellous bone for additional bone marrow elements during the healing of the Achilles tendon where it will eventually be reattached over this area. Copious saline irrigation was used to remove all bony fragments. An Achilles speed bridge repair was now performed. I placed 2 proximal drill holes, first using the drill bit and a drill sleeve, followed by manual tap. The two medial 4.75 mm swivel lock anchors were placed. Copious irrigation was used to remove bone fragments. The mattress sutures were placed first, into the medial and lateral flaps of the distal Achilles tendon, using a free needle. These were used as ripstop sutures. The swaged fiber tapes were then passed slightly proximal to the mattress sutures, and then the mattress sutures were able to be tied with good compression of the Achilles tendon to the proximal area of the exposed bone of the ostectomy. The swaged area of the tapes was trimmed, and the crossing tapes were then placed into 2 additional drill holes, and to distal 4.75 mm swivel lock anchors. Again copious irrigation was used prior to placement of the anchors to remove any bone dust. I did use one of the dog ear sutures, on the medial side for additional security of the most medial aspect of the tendon. The lateral aspect was completely compressed to the bone without any additional dogear suture. The central tendon was now repaired with #2-0 PDS running [id number] suture for secure repair of the longitudinal split. The tendon was now nicely repaired and compressed to healthy bleeding cancellous bone. Harris dorsiflexion shows normal Achilles tendon tension, with the ankle at about 15 degrees of plantarflexion with gravity and with the knee flexed, and appears neither too tight nor too loose. The tourniquet was released. Copious saline irrigation was used. Bovie electrocautery was used carefully for hemostasis. The skin edges were injected with 10 mL of 0.25% bupivacaine with epinephrine, and an additional 30 mL of 0.25% bupivacaine without epinephrine. The peritenon was repaired with #2-0 Vicryl [id number] sutures. The subcutaneous tissues were closed with #2-0 Vicryl [id number] sutures. My event marketing assistant repaired the skin edges with #4-0 Monocryl subcuticular closure. He placed Mastisol and Steri-Strips. He placed a sterile dressing including the Arthrex jumpstart dressing. He then applied a well-padded posterior splint with the ankle in gravity dorsiflexion. Needle and sponge counts were correct. There were no apparent complications. DANIELLE BOTELLO MD Jul 02, 2020 09:28
[2020-07-02] MEDS ORDERED: PROCHLORPERAZINE 10 MG/2 ML VIAL. ONE (09:53)
[2020-07-02] MEDS ORDERED: MORPHINE SULFATE 2 MG/ML VIAL. ONE (09:54)
[2020-07-02] MEDS ORDERED: HYDROcodone/APAP 5/325MG 1 TAB TABLET PO ONE ×2 (10:00→13:27)
[2020-07-02] MEDS ORDERED: KETOROLAC 30 MG/ML VIAL. IVP ONE (10:00)
[2020-07-02] MEDS: fentaNYL PF VIAL 100 MCG/2 ML VIAL IV PRN ×2 (10:07→10:55)
[2020-07-02 11:08] VITALS: BP 134/58
[2020-07-03 00:08] LABS: HEMOGLOBIN A1C 5.1 % (4.8-5.6)
== END 2020-07-02 14:35 | disposition home or self-care (01) ==
LOC: SURG 06:03
PROVIDERS: ATTEND Orthopaedic Surgery
DX: M76.62 Achilles tendinitis, left leg (principal); M21.6X2 Other acquired deformities of left foot; S86.012A Strain of left Achilles tendon, initial encounter; I10 Essential (primary) hypertension; J45.909 Unspecified asthma, uncomplicated; E66.9 Obesity, unspecified; K21.9 Gastro-esophageal reflux disease without esophagitis; E11.9 Type 2 diabetes mellitus without complications; F41.9 Anxiety disorder, unspecified; F32.9 Major depressive disorder, single episode, unspecified; G47.30 Sleep apnea, unspecified; Z98.51 Tubal ligation status; Z90.710 Acquired absence of both cervix and uterus; Z98.890 Other specified postprocedural states; Z79.899 Other long term (current) drug therapy; Z72.89 Other problems related to lifestyle; Z88.1 Allergy status to other antibiotic agents; Z88.5 Allergy status to narcotic agent; Z88.8 Allergy status to other drugs, medicaments and biological substances; Z68.34 Body mass index [BMI] 34.0-34.9, adult; X58.XXXA Exposure to other specified factors, initial encounter; Y93.89 Activity, other specified; Y92.89 Other specified places as the place of occurrence of the external cause; Y99.8 Other external cause status
CPT/HCPCS: 27650; 28118; 36415; 80048; 82306; 82962; 83036; 85025; 97116; 97162; 97530; C1713; J0330; J0690; J0780; J1100; J1885; J2250; J2370; J2405; J2704; J2710; J3010; J3490; J2270

== ENCOUNTER → 2020-08-31 | Outpatient (CLI) | payer MEDICARE ==
[~2020-08-31] MED LIST changes: -BUPIVACAINE-EPI 0.25%-1:200000 MPF 30 ML VIAL. INJ ONE; -CLIN150C14 PO; +CLIN150C15 PO; -OMEP40CA45 PO; +OMEP40CA7 PO
--- NOTE | 2020-09-01 11:00 | KCIC ---
Study: MRI left ankle without contrast INDICATION: Achilles surgical repair in June 2020. Persistent pain. COMPARISON: Calcaneus radiographs 07/19/2020; left ankle radiographs 04/15/2020 TECHNIQUE: Multiplanar MR imaging of the left ankle performed without the use of intravenous or intra -articular contrast. FINDINGS: Bones/cartilage: Surgical anchors within the posterior calcaneus along the Achilles insertion. Surrou nding edema-like signal without an intervening fracture line. No fluid signal along the anchors to gallardo ggest loosening. Heterogeneous marrow signal to varying extent throughout the rest of the imaged foot as well as at the lower margins of the tibia and fibula likely related to disuse. Chronic signal gian nge with some associated susceptibility artifact within the distal tibial diametaphysis. Ligaments: Intact distal syndesmosis. Intact ATFL, CFL and PTFL. The deltoid ligament complex is inta ct as are the spring and partially assessed Lisfranc ligaments. Musculotendinous: Heterogeneous signal and thickening at the Achilles insertion mainly over a cranioc audal length of approximately 3.5 cm. No recurrent high-grade or full-thickness tear. Mild peroneus l ongus tendinosis along the lateral malleolus. The peroneal tendons remain normally located and intact . Intact PTT, FDL and FHL without significant tendon sheath fluid. Unremarkable extensors. Confluent edema-like signal along the proximal aspect of the quadratus plantae muscle. Sinus Tarsi: Maintained fatty signal. Tarsal tunnel: Within normal limits. Plantar fascia: No manifestations of active plantar fasciitis. Miscellaneous: Mild edema at the lower aspect of Kager's fat. Mild pre-Achilles edema. Only a small a mount of ankle and subtalar joint fluid. IMPRESSION: 1. Sequela of Achilles repair with four surgical anchors embedded within the calcaneous. Signal hete rogeneity and thickening at the distal Achilles over a craniocaudal length of approximately 3.5 cm bu t there is no recurrent high-grade or full-thickness tear. Marrow edema-like signal along the surgica l anchors but without a superimposed fracture or confluent fluid signal along the anchors to suggest loosening. Muscular edema within the quadratus planta and mild edema of Kager's fat. These findings c ould all be within normal limits given proximity to repair and there is no definitive complication of surgery seen at this time. Repeat calcaneal radiographs could be of use to allow for more direct com parison to the exam from 07/19/2020. 2. Background marrow signal heterogeneity elsewhere throughout the foot and lower tibia/fibula favor ed related to disuse. 3. No advanced tendinosis or focal tear of the peroneal, flexor or extensor tendons. No acute ligame ntous abnormality. Electronically signed by: CHARLES BELL MD (09/01/2020 10:58 AM) [id number]
== END ==
LOC: KCIC MRI 12:51
PROVIDERS: ATTEND Orthopaedic Surgery
DX: M76.62 Achilles tendinitis, left leg (principal); M67.88 Other specified disorders of synovium and tendon, other site
CPT/HCPCS: 73721

== ENCOUNTER 2021-05-24 07:32 | Emergency (ER) | payer MEDICARE ==
[~2021-05-24] VITALS: Ht 160 cm; Wt 83.2 kg
[~2021-05-24 07:32] MED LIST changes: -CLIN150C15 PO; +CLIN150C16 PO; +METH-572 PO; -METH10TA2 PO
--- NOTE | 2021-05-24 09:05 | RAD ---
EXAMINATION: CT ABDOMEN+PELVIS WO CLINICAL HISTORY: Left lower abdominal pain TECHNIQUE: Imaging of the abdomen and pelvis was performed without intravenous contrast using standar d technique, scanning from just above the dome of the diaphragm to the symphysis pubis. Unenhanced i maging is limited for the evaluation of some intra-abdominal and pelvic pathology. CT Dose Reduction Employed: One or more of the following individualized dose reduction techniques wer e utilized for this examination: 1. Automated exposure control 2. Adjustment of the mA and/or kV ac cording to patient size 3. Use of iterative reconstruction technique. COMPARISON: 01/19/2019 FINDINGS: Unchanged 4 mm solid pulmonary nodules bilateral lung bases (series 2 image 4 on the right and image 1 on the left), possibly noncalcified granulomas. Curvilinear bibasilar subsegmental atelectasis and/ or scarring. Small calcification in the spleen, likely related to old granulomatous disease. Liver, gallbladder, p ancreas, and adrenal glands unremarkable. 8 mm calculus in the left renal pelvis near the ureteropelvic junction with mild hydronephrosis. Tiny nonobstructive bilateral renal calculi. Small cortical defects in the posteromedial upper pole of th e left kidney, possibly related to prior insult/infarct. Minimally filled urinary bladder suboptimally evaluated. Hysterectomy. Sigmoid diverticulosis without definitive evidence of acute diverticulitis on limited noncontrast arlet luation. No dilated bowel. Appendix within normal limits. Nondistended stomach suboptimally evaluated . Tortuous calcified aorta. No aortic aneurysm. Lumbosacral postoperative changes with L4-5 and L5-S1 discectomies with interbody cages, L4 and L5 la minectomies, and L4-S1 posterior fusion hardware. Lytic lesion in the right L3 vertebral body with ex tension into the pedicle and posterior elements, similar to prior study. IMPRESSION: 8 mm calculus near the left ureteropelvic junction with mild left hydronephrosis. Additional bilatera l nonobstructive nephrolithiasis. Multiple nonacute findings as described, similar to prior study. Electronically signed by: Brandon Anne DO (05/24/2021 9:03 AM) [facility]
[2021-05-24 09:40] LABS: BACTERIA,URINE 0 /HPF (0-FEW); BILIRUBIN,URINE NEGATIVE (NEG); CLARITY,URINE CLEAR; COLOR,URINE YELLOW; NITRITE,URINE NEGATIVE (NEG); PROTEIN,URINE NEGATIVE (NEG-TRACE); UROBILINOGEN,URINE 0.2 mg/dL (0.2 mg/dL); WBC,URINE 0 /HPF (0-4)
[2021-05-24 09:56] LABS: BASO % 1 % (0-3); EOS % 1 % (0-3); HEMATOCRIT 38.7 % (36.0-47.0); HEMOGLOBIN 12.9 g/dL (12.0-15.5); LYMPH # 1.3 x10^3/uL (1.0-4.8); LYMPH % 39 % (24-48); MEAN CORPUSCULAR HEMOGLOBIN 30 pg (25-35); MEAN CORPUSCULAR HGB CONC 33 g/dL (31-37); MEAN CORPUSCULAR VOLUME 90 fL (79-100); MONO # 0.3 x10^3/uL (0.0-1.1); MONO % 9 % (0-9); NEUT # 1.7 x10^3/uL (1.8-7.7); NEUT % 51 % (31-73); PLATELET COUNT 242 x10^3/uL (140-400); RED BLOOD COUNT 4.31 x10^6/uL (3.50-5.40); RED CELL DISTRIBUTION WIDTH 13.9 % (11.5-14.5); WHITE BLOOD COUNT 3.3 x10^3/uL (4.0-11.0)
[2021-05-24 10:16] LABS: ALBUMIN 3.5 g/dL (3.4-5.0); CALCIUM 8.6 mg/dL (8.5-10.1); CREATININE 0.7 mg/dL (0.6-1.0); POTASSIUM 4.7 mmol/L (3.5-5.1); TOTAL BILIRUBIN 0.3 mg/dL (0.2-1.0); TOTAL PROTEIN 7.1 g/dL (6.4-8.2)
--- NOTE | 2021-05-24 10:25 | PHYS DOC ---
Past Medical History Past Medical History: Asthma, Bronchitis, Depression, Diabetes-Type II, GERD, Kidney Stone, Other Additional Past Medical Histor: cystitis,bulging disc,DJD,CHRONIC BACK PAIN,SLEEP APNEA Past Surgical History: Hysterectomy, Knee Replacement, Tonsillectomy, Tubal ligation, Other Additional Past Surgical Histo: LAP,back X 2,ACHILLES REPAIR Smoking Status: Never Smoker Alcohol Use: Occasionally Drug Use: None General Adult EDM: Chief Complaint: ABDOMINAL PAIN HPI: HPI: Patient is a 65 year old female who present to ER due to left-sided abdominal pain that radiated to her back, has been going on for 2 months off and on. The pain became more severe the last 2 days. So she came into ER for evaluation. Patient complained of some nausea, no vomiting. Patient denies any fever. Patient is on hydrocodone at home. Patient took her pain pill before she came in. Patient said her pain normally controlled whenever she comes to ER with Toradol. Review of Systems: Review of Systems: Constitutional: Denies fever or chills. [] Eyes: Denies change in visual acuity. [] HENT: Denies nasal congestion or sore throat. [] Respiratory: Denies cough or shortness of breath. [] Cardiovascular: Denies chest pain or edema. [] GI: Positive for left flank pain, with nausea, no vomiting. : Denies dysuria. [] Musculoskeletal: Denies back pain or joint pain. [] Integument: Denies rash. [] Neurologic: Denies headache, focal weakness or sensory changes. [] Endocrine: Denies polyuria or polydipsia. [] Lymphatic: Denies swollen glands. [] Psychiatric: Denies depression or anxiety. [] Heart Score: C/O Chest Pain: N/A Risk Factors: Risk Factors: DM, Current or recent (<one month) smoker, HTN, HLP, family history of CAD, obesity. Risk Scores: Score 0 - 3: 2.5% MACE over next 6 weeks - Discharge Home Score 4 - 6: 20.3% MACE over next 6 weeks - Admit for Clinical Observation Score 7 - 10: 72.7% MACE over next 6 weeks - Early Invasive Strategies Current Medications: Current Medications Medications (Trade) Dose Ordered Sig/Karina Start Time Stop Time Status Last Admin Dose Admin Ketorolac Tromethamine (Toradol 30mg Vial) 30 mg 1X ONCE 10/12/21 10:30 05/24/21 10:31 UNV Allergies: Allergies: Allergies Coded Allergies Type Severity Reaction Last Updated Verified Iodinated Contrast Media Allergy Intermediate Hives 06/29/20 Yes aspirin Allergy Intermediate Hives 06/29/20 Yes caffeine Allergy Intermediate Hives 06/29/20 Yes propoxyphene napsylate Allergy Intermediate NAUSEA 06/29/20 Yes codeine Adverse Reaction Intermediate N&V STOMACH PAINS 06/29/20 Yes ibuprofen Adverse Reaction Intermediate NAUSEA 06/29/20 Yes morphine Adverse Reaction Intermediate NAUSEA 06/29/20 Yes oxycodone HCl Adverse Reaction Intermediate NAUSEA 06/29/20 Yes Physical Exam: PE: Constitutional: Well developed, well nourished, no acute distress, non-toxic appearance. [] HENT: Normocephalic, atraumatic, bilateral external ears normal, oropharynx moist, no oral exudates, nose normal. [] Eyes: PERRLA, EOMI, conjunctiva normal, no discharge. [] Neck: Normal range of motion, no tenderness, supple, no stridor. [] Cardiovascular:Heart rate regular rhythm, no murmur [] Lungs & Thorax: Bilateral breath sounds clear to auscultation [] Abdomen: Bowel sounds normal, soft, left upper quadrant tenderness to palpation, no masses, no pulsatile masses. [] Skin: Warm, dry, no erythema, no rash. [] Back: No tenderness, LEFT CVA tenderness. [] Extremities: No tenderness, no cyanosis, no clubbing, ROM intact, no edema. [] Neurologic: Alert and oriented X 3, normal motor function, normal sensory function, no focal deficits noted. [] Psychologic: Affect normal, judgement normal, mood normal. [] Current Patient Data: Labs: Laboratory Tests Test 05/24/21 09:00 05/24/21 09:44 Urine Collection Type Unknown Urine Color Yellow Urine Clarity Clear Urine pH 8.0 (<5.0-8.0) Urine Specific [place] 1.015 (1.000-1.030) Urine Protein Negative mg/dL (NEG-TRACE) Urine Glucose (UA) Negative mg/dL (NEG) Urine Ketones (Stick) Trace mg/dL (NEG) Urine Blood Moderate (NEG) Urine Nitrite Negative (NEG) Urine Bilirubin Negative (NEG) Urine Urobilinogen Dipstick 0.2 mg/dL (0.2 mg/dL) Urine Leukocyte Esterase Negative (NEG) Urine RBC 11-20 /HPF (0-2) Urine WBC 0 /HPF (0-4) Urine Squamous Epithelial Cells Few /LPF Urine Bacteria 0 /HPF (0-FEW) White Blood Count 3.3 x10^3/uL (4.0-11.0) L Red Blood Count 4.31 x10^6/uL (3.50-5.40) Hemoglobin 12.9 g/dL (12.0-15.5) Hematocrit 38.7 % (36.0-47.0) Mean Corpuscular Volume 90 fL (79-100) Mean Corpuscular Hemoglobin 30 pg (25-35) Mean Corpuscular Hemoglobin Concent 33 g/dL (31-37) Red Cell Distribution Width 13.9 % (11.5-14.5) Platelet Count 242 x10^3/uL (140-400) Neutrophils (%) (Auto) 51 % (31-73) Lymphocytes (%) (Auto) 39 % (24-48) Monocytes (%) (Auto) 9 % (0-9) Eosinophils (%) (Auto) 1 % (0-3) Basophils (%) (Auto) 1 % (0-3) Neutrophils # (Auto) 1.7 x10^3/uL (1.8-7.7) L Lymphocytes # (Auto) 1.3 x10^3/uL (1.0-4.8) Monocytes # (Auto) 0.3 x10^3/uL (0.0-1.1) Eosinophils # (Auto) 0.0 x10^3/uL (0.0-0.7) Basophils # (Auto) 0.0 x10^3/uL (0.0-0.2) Sodium Level 139 mmol/L (136-145) Potassium Level 4.7 mmol/L (3.5-5.1) Chloride Level 103 mmol/L (98-107) Carbon Dioxide Level 30 mmol/L (21-32) Anion Gap 6 (6-14) Blood Urea Nitrogen 8 mg/dL (7-20) Creatinine 0.7 mg/dL (0.6-1.0) Estimated GFR (Cockcroft-Gault) 101.0 BUN/Creatinine Ratio 11 (6-20) Glucose Level 86 mg/dL (70-99) Calcium Level 8.6 mg/dL (8.5-10.1) Total Bilirubin 0.3 mg/dL (0.2-1.0) Aspartate Amino Transferase (AST) 9 U/L (15-37) L Alanine Aminotransferase (ALT) 13 U/L (14-59) L Alkaline Phosphatase 53 U/L (46-116) Total Protein 7.1 g/dL (6.4-8.2) Albumin 3.5 g/dL (3.4-5.0) Albumin/Globulin Ratio 1.0 (1.0-1.7) Lipase 52 U/L (73-393) L Laboratory Tests 05/24/21 09:44 Laboratory Tests 05/24/21 09:44 Vital Signs: Vital Signs Date Time Temp Pulse Resp B/P (MAP) Pulse Ox O2 Delivery O2 Flow Rate FiO2 05/24/21 07:36 97.5 84 18 138/77 (97) 97 Room Air 97.5 EKG: EKG: [] Radiology/Procedures: Radiology/Procedures: [][facility] [address] [place] [address] IMAGING REPORT Signed PATIENT: DARLYN SANTOS ACCOUNT: [id number] : 1955 LOCATION: ER AGE: 65 SEX: F EXAM STATUS: PRE ER ORD. PHYSICIAN: YANCI FARFAN DO REASON: left lower abdominal pain PROCEDURE: CT ABDOMEN PELVIS WO CONTRAST EXAMINATION: CT ABDOMEN+PELVIS WO CLINICAL HISTORY: Left lower abdominal pain TECHNIQUE: Imaging of the abdomen and pelvis was performed without intravenous contrast using standard technique, scanning from just above the dome of the diaphragm to the symphysis pubis. Unenhanced imaging is limited for the evaluation of some intra-abdominal and pelvic pathology. CT Dose Reduction Employed: One or more of the following individualized dose reduction techniques were utilized for this examination: 1. Automated exposure control 2. Adjustment of the mA and/or kV according to patient size 3. Use of iterative reconstruction technique. COMPARISON: 01/19/2019 FINDINGS: Unchanged 4 mm solid pulmonary nodules bilateral lung bases (series 2 image 4 on the right and image 1 on the left), possibly noncalcified granulomas. Curvilinear bibasilar subsegmental atelectasis and/or scarring. Small calcification in the spleen, likely related to old granulomatous disease. Liver, gallbladder, pancreas, and adrenal glands unremarkable. 8 mm calculus in the left renal pelvis near the ureteropelvic junction with mild hydronephrosis. Tiny nonobstructive bilateral renal calculi. Small cortical defects in the posteromedial upper pole of the left kidney, possibly related to prior insult/infarct. Minimally filled urinary bladder suboptimally evaluated. Hysterectomy. Sigmoid diverticulosis without definitive evidence of acute diverticulitis on limited noncontrast evaluation. No dilated bowel. Appendix within normal limits. Nondistended stomach suboptimally evaluated. Tortuous calcified aorta. No aortic aneurysm. Lumbosacral postoperative changes with L4-5 and L5-S1 discectomies with interbody cages, L4 and L5 laminectomies, and L4-S1 posterior fusion hardware. Lytic lesion in the right L3 vertebral body with extension into the pedicle and posterior elements, similar to prior study. IMPRESSION: 8 mm calculus near the left ureteropelvic junction with mild left hydronephrosis. Additional bilateral nonobstructive nephrolithiasis. Multiple nonacute findings as described, similar to prior study. Electronically signed by: Brandon Santos DO (05/24/2021 9:03 AM) [facility] DICTATED and SIGNED BY: BRANDON SANTOS DO DATE: 05/24/21 [id number] 0 Course & Med Decision Making: Course & Med Decision Making Pertinent Labs and Imaging studies reviewed. (See chart for details) Patient is a 65-year-old female who present to ER due to left flank pain. CT sc an her abdomen pelvis show a millimeter stone in the left ureter of pelvic junction with hydronephrosis. Her kidney function is normal. Patient will be discharged home. Patient will need to follow-up with urology for outpatient follow-up. Patient is already on hydrocodone at home, she is recommended take hydrocodone as needed for pain control. Dragon Disclaimer: Dragon Disclaimer: This electronic medical record was generated, in whole or in part, using a voice recognition dictation system. Departure Departure Impression: Primary Impression: Kidney stone on left side Disposition: HOME / SELF CARE / HOMELESS Condition: IMPROVED Referrals: SANTANA CARPENTER MD (PCP) Please call UROLOGY FOR FOLLOW UP IN 2 [place] [address] [facility] [place] Patient Instructions: Kidney Stones Additional Instructions: Please call UROLOGY FOR FOLLOW UP IN 2 [place] [address] [place], [place] [id number] [place] [address] [place] [address] [facility], [address] [place] [address] Thank you for visiting our Emergency Department. We appreciate you trusting us with your care. If any additional problems come up don't hesitate to return to visit us. Please follow up with your primary care provider so they can plan additional care if needed and know about the problem that you had. If symptoms worsen come back to the Emergency Department. Any concerning symptoms that start such as chest pain, shortness of air, weakness or numbness on one side of the b eric, running high fevers or any other concerning symptoms return to the ER. YANCI FARFAN DO May 24, 2021 10:25
[2021-05-24] MEDS ORDERED: KETOROLAC 30 MG/ML VIAL. IVP ONE (10:30)
[2021-05-24 11:42] VITALS: BP 149/70
== END 2021-05-24 11:59 | disposition home or self-care (01) ==
LOC: ER 07:32
DX: N13.2 Hydronephrosis with renal and ureteral calculous obstruction (principal); J45.909 Unspecified asthma, uncomplicated; G89.29 Other chronic pain; K21.9 Gastro-esophageal reflux disease without esophagitis; E11.9 Type 2 diabetes mellitus without complications; Z90.710 Acquired absence of both cervix and uterus; Z98.51 Tubal ligation status; Z91.041 Radiographic dye allergy status; Z88.6 Allergy status to analgesic agent; Z88.5 Allergy status to narcotic agent; Z88.8 Allergy status to other drugs, medicaments and biological substances
CPT/HCPCS: 36415; 74176; 80053; 81001; 82962; 83690; 85025; 96374; 99285; J1885